=== PATIENT | male | born 1985 | race African-American/Black ===

== ENCOUNTER 2016-12-31 18:08 | Emergency (ER) | payer OTHER ==
[2016-12-31 18:15] VITALS: BP 159/89; PULSE 87; TEMP 97.6; BMI 22.9
[2016-12-31] MEDS ORDERED: diphenhydrAMINE HCL 25 MG CAPSULE (FP) PO ONE ×2 (19:10→19:12)
--- NOTE | 2016-12-31 19:10 | PDOC ---
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 HISTORY OF PRESENT ILLNESS: The patient states he tried a new food about 2 hours ago and the [employer] worker was unsure if there were any nuts or coconut milk in the food. He states after a few bites he started feeling tingling in his throat. He denies f/c, n/v/d, CP, SOB, swelling to lips or tongue. He did not take any OTC medications prior to coming to the ER. Vital signs on arrival are within normal limits. REVIEW OF SYSTEMS: GENERAL/CONSTITUTIONAL: No fever/chills. No weakness. No weight change. HEAD, EYES, EARS, NOSE AND THROAT: No change in vision. No ear pain or discharge. +tingling throat. CARDIOVASCULAR: No chest pain or shortness of breath. RESPIRATORY: No cough, wheezing, or hemoptysis MUSCULOSKELETAL: No joint or muscle swelling or pain. No neck or back pain. SKIN: No rash or easy bruising. NEUROLOGIC: No headache, vertigo, loss of consciousness, or loss of sensation. PHYSICAL EXAM: GENERAL: The patient is awake, alert, and fully oriented, in no acute distress. He is well appearing, ambulatory, in NAD or obvious discomfort. HEAD: Normal with no signs of trauma. ENT: Pupils equal, round and reactive to light, extraocular movements intact, sclera anicteric, conjunctiva clear. No lip or tongue swelling. LUNGS: Clear to auscultation bilaterally. Normal excursion. No respiratory distress or use of accessory muscles. CV: RRR, S1/S2, no MRG. Cap refill < 2 sec. ABDOMEN: Soft, non-distended, non-tender even to deep palpation, no hepatomegaly or splenomegaly, no masses. EXTREMITIES: Normal range of motion, no edema. NEUROLOGICAL: Normal speech, normal gait. CN II-XII grossly intact. PSYCH: Normal mood, normal affect. SKIN: Warm, dry, normal turgor, no rashes or lesions noted. Past History - Past Medical History Allergies/Adverse Reactions: Allergies Allergy/AdvReac Type Severity Reaction Status Date / Time No Known Drug Allergies Allergy Verified 12/31/16 19:13 MOST NUTS Allergy Uncoded 12/31/16 18:11 Home Medications: Ambulatory Orders NK [No Known Home Medication] 12/31/16 Other medical history: PT DENIES MEDICAL HX - Psycho/Social/Smoking Cessation Hx Suicidal Ideation: No Smoking History: Current some day smoker Information on smoking cessation initiated: No Hx Alcohol Use: No Drug/Substance Use Hx: Yes Substance Use Type: Marijuana *Physical Exam - Vital Signs Last Vital Signs Temp Pulse Resp BP Pulse Ox 97.6 F 87 18 159/89 100 12/31/16 18:11 12/31/16 18:11 12/31/16 18:11 12/31/16 18:11 12/31/16 18:11 Medical Decision Making - Medical Decision Making A/P: 31 y/o afebrile male with itchy throat for the past 2 hours after eating new food. Physical exam is unremarkable. Plan is as follows: 1. PO benadryl 2. PO prednisone 3. Reassess The patient states he feels better. Will discharge to home. Suggested he take Benadryl if needed if symptoms recur. Instructed him to return to the ER with any worsening or concerning symptoms. The patient verbalizes understanding of all instructions, has no further questions and is awaiting discharge. *DC/Admit/Observation/Transfer Diagnosis at time of Disposition: Allergic reaction Qualifiers: Encounter type: initial encounter Qualified Code(s): T78.40XA - Allergy, unspecified, initial encounter - Discharge Dispostion Disposition: HOME Condition at time of disposition: Improved - Referrals Referrals: Saroj Dent MD [Primary Care Provider] - - Patient Instructions Printed Discharge Instructions: DI for General Allergic Reactions Additional Instructions: Discharge Instructions: -Avoid foods that contain ingredients you are allergic to -Take over the counter Benadryl if needed for itchy throat/allergic reaction symptoms -Return to the ER with any worsening or concerning symptoms
[2016-12-31] MEDS ORDERED: predniSONE 20 MG TABLET (UD) PO ONE (19:15)
[2016-12-31] MEDS ORDERED: predniSONE 20 MG TABLET (UD) ONE (19:21)
== END 2016-12-31 21:02 | disposition home or self-care (01) ==
LOC: JER 18:08
DX: T78.1XXA Other adverse food reactions, not elsewhere classified, initial encounter (principal); J39.2 Other diseases of pharynx
CPT/HCPCS: 99282-25

== ENCOUNTER 2019-03-17 13:24 | Inpatient (IN) | payer SELFPAY ==
[2019-03-17 13:36] VITALS: BMI 25.8
[2019-03-17] MEDS ORDERED: SODIUM CHLORIDE 1,000 ML IV STA ×2 (15:43→18:46)
[2019-03-17] MEDS ORDERED: ACETAMINOPHEN 1000 MG/100 ML VIAL (NON FORMULARY) IVPB ONE ×2 (15:43→23:42)
[2019-03-17] MEDS ORDERED: FAMOTIDINE 20 MG/50 ML IVPB 20 MG/50 ML MG IVPB ONE ×2 (15:43→15:58)
--- NOTE | 2019-03-17 15:43 | PDOC ---
History of Present Illness - General Chief Complaint: Pain, Acute Stated Complaint: LOWER ABD PAIN Time Seen by Provider: 03/17/19 14:16 History Source: Patient Exam Limitations: No Limitations Past History - Travel Traveled outside of the country in the last 30 days: No Close contact w/someone who was outside of country & ill: No - Past Medical History Allergies/Adverse Reactions: Allergies Allergy/AdvReac Type Severity Reaction Status Date / Time No Known Drug Allergies Allergy Verified 03/17/19 16:46 MOST NUTS Allergy Uncoded 03/17/19 16:46 Home Medications: Ambulatory Orders NK [No Known Home Medication] 12/31/16 COPD: No GI Disorders: No Liver Disease: No - Surgical History Gastric Stapling: No - Immunization History Immunization Up to Date: Yes - Suicide/Smoking/Psychosocial Hx Smoking History: Never smoked Have you smoked in the past 12 months: No Information on smoking cessation initiated: No Hx Alcohol Use: Yes Drug/Substance Use Hx: No Substance Use Type: Marijuana Review of Systems - Review of Systems Able to Perform ROS?: Yes Comments:: 03/17/19 18:24 CONSTITUTIONAL: Absent: fever, chills, diaphoresis, generalized weakness, malaise, loss of appetite HEENT: Absent: rhinorrhea, nasal congestion, throat pain, throat swelling, difficulty swallowing, mouth swelling, ear pain, eye pain, visual Changes CARDIOVASCULAR: Absent: chest pain, loss of consciousness, palpitations, irregular heart rate, peripheral edema RESPIRATORY: Absent: cough, shortness of breath, dyspnea with exertion, orthopnea, wheezing, stridor, hemoptysis GASTROINTESTINAL: Present: abdominal pain, nausea Absent: abdominal distension, vomiting, diarrhea , constipation, melena, hematochezia GENITOURINARY: Absent: dysuria, frequency, urgency, hesitancy, hematuria, flank pain, genital pain MUSCULOSKELETAL: Absent: myalgia, arthralgia, joint swelling SKIN: Absent: rash, itching, pallor HEMATOLOGIC/IMMUNOLOGIC: Absent: easy bleeding, easy bruising, lymphadenopathy, frequent infections ENDOCRINE: Absent: unexplained weight gain, unexplained weight loss, heat intolerance, cold intolerance NEUROLOGIC: Absent: headache, focal weakness or paresthesias, dizziness, unsteady gait, seizure, mental status changes, bladder or bowel incontinence PSYCHIATRIC: Absent: anxiety, depression, suicidal or homicidal ideation, hallucinations. Is the patient limited Azeri proficient: No *Physical Exam - Vital Signs Last Vital Signs Temp Pulse Resp BP Pulse Ox 97.8 F 135 H 18 130/93 96 03/17/19 13:32 03/17/19 13:32 03/17/19 13:32 03/17/19 13:32 03/17/19 13:32 - Physical Exam Comments: 03/17/19 18:26 GENERAL: Well developed, well nourished. Awake and alert. No acute distress. HEENT: Normocephalic, atraumatic. PERRLA, EOMI. No conjunctival pallor. Sclera are non- icteric. Moist mucous membranes. NECK: Supple. Full ROM. No JVD. Carotid pulses 2+ and symmetric, without bruits. No thyromegaly. No lymphadenopathy. CARDIOVASCULAR: Regular rate and rhythm. No murmurs, rubs, or gallops. Distal pulses are 2+ and symmetric. PULMONARY: No evidence of respiratory distress. Lungs clear to auscultation bilaterally. No wheezing, rales or rhonchi. ABDOMINAL: TTP of the RUQ and epigastric area. Mildly distended. Soft. No rebound or guarding. No organomegaly. Normoactive bowel sounds. MUSCULOSKELETAL Normal range of motion at all joints. No bony deformities or tenderness. No CVA tenderness. EXTREMITIES: No cyanosis. No clubbing. No edema. No calf tenderness. SKIN: Warm and dry. Normal capillary refill. No rashes. No jaundice. NEUROLOGICAL: Alert, awake, appropriate. Cranial nerves 2-12 intact. No deficits to light touch and temperature in face, upper extremities and lower extremities. No motor deficits in the in face, upper extremities and lower extremities. Normoreflexic in the upper and lower extremities. Normal speech. Toes are down- going bilaterally. Gait is normal without ataxia. PSYCHIATRIC: Cooperative. Good eye contact. Appropriate mood and affect. ED Treatment Course - LABORATORY CBC & Chemistry Diagram: 03/18/19 09:25 03/18/19 09:25 Medical Decision Making - Medical Decision Making 03/17/19 19:03 The patient is a 34-year-old male with no medical history who presents to the ER today for abdominal pain since this morning. Patient states that is mostly in his upper abdomen. He states it is worse in the middle and off towards the right. He states that he last ate dinner last night and went to bed. He states he woke up with the pain. Nothing he does makes the pain better or worse. Admits to nausea but no vomiting. Denies fevers, chills, chest pain, shortness breath, difficulty breathing, vomiting, diarrhea, constipation, frequency and urgency. Is S/P: Epigastric pain On exam patient very tender to the right upper quadrant in the epigastric region. Abdominal labs ordered, IV placed Lab work shows a leukocytosis of 18, lipase of 10,000 Suspected pancreatitis; possibly gallstone related. Ascending cholangitis? Patient sent for both ultrasound and CAT scan at this time Patient is pending scans and reads at this time Sign out given to GABY Johnson. Anticipate admission Patient does not have primary care doctor. *DC/Admit/Observation/Transfer Diagnosis at time of Disposition: Abdominal pain Qualifiers: Abdominal location: upper abdomen, unspecified Qualified Code(s): R10.10 - Upper abdominal pain, unspecified Acute pancreatitis Qualifiers: Pancreatitis type: alcohol induced Acute pancreatitis complication: uninfected necrosis Qualified Code(s): K85.21 - Alcohol induced acute pancreatitis with uninfected necrosis - Discharge Dispostion Condition at time of disposition: Stable - Referrals - Patient Instructions - Post Discharge Activity
[2019-03-17] MEDS ORDERED: ACETAMINOPHEN INJECTION 100 ML IVPB ONE (15:58)
[2019-03-17 16:20] LABS: BASO % 0.1 % (0-2.0); HEMATOCRIT 49.6 % (35.4-49); HEMOGLOBIN 16.5 GM/dL (11.7-16.9); LYMPH % 4.3 % (8-40); MCH 31.1 pg (25.7-33.7); MCHC 33.3 g/dl (32.0-35.9); MEAN CELL VOLUME 93.5 fl (80-96); MEAN PLT VOLUME 7.9 fl (7.5-11.1); MONO % 8.3 % (3.8-10.2); NEUT % 87.3 % (42.8-82.8); PLATELET COUNT 205 K/MM3 (134-434); RDW 13.9 % (11.9-15.9); WHITE BLOOD COUNT 18.4 K/mm3 (4.0-10.0)
[2019-03-17 16:40] LABS: INR 1.04 (0.83-1.09); PROTHROMBIN TIME (PATIENT) 12.3 SEC (9.7-13.0)
[2019-03-17 16:51] LABS: ALBUMIN 4.8 g/dl (3.4-5.0); ALK PHOS 52 U/L (45-117); ANION GAP 17 MMOL/L (8-16); BILIRUBIN,TOTAL 0.4 mg/dL (0.2-1); BLOOD UREA NITROGEN 18 mg/dL (7-18); CALCIUM 9.2 mg/dL (8.5-10.1); CHLORIDE 103 mmol/L (98-107); CO2 18 mmol/L (21-32); GLUCOSE,RANDOM 133 mg/dL (74-106); LIPASE 10515 U/L (73-393); POTASSIUM 4.1 mmol/L (3.5-5.1); SGOT/AST 35 U/L (15-37); SGPT/ALT 74 U/L (13-61); SODIUM 139 mmol/L (136-145); TOT PROT 8.8 g/dl (6.4-8.2)
[2019-03-17] MEDS ORDERED: morphine CARPU-JECT 4 MG/1 ML DISP.SYRIN IVPUSH ONE (17:28)
[2019-03-17] MEDS ORDERED: morphine SULFATE 4 MG/ML VIAL ONE (17:28)
[2019-03-17] MEDS ORDERED: HYDROmorphone HCL CARPU-JECT 2 MG/1 ML DISP.SYRIN IVPUSH ONE ×2 (19:53→23:42)
[2019-03-17] MEDS ORDERED: HYDROmorphone HCl 2 MG/ML VIAL ONE ×2 (20:41→23:47)
--- NOTE | 2019-03-17 22:33 | PDOC ---
*Physical Exam - Vital Signs Last Vital Signs Temp Pulse Resp BP Pulse Ox 97.8 F 135 H 18 130/93 96 03/17/19 13:32 03/17/19 13:32 03/17/19 13:32 03/17/19 13:32 03/17/19 13:32 - Physical Exam General Appearance: Yes: Appropriately Dressed Respiratory/Chest: positive: Lungs Clear, Normal Breath Sounds Cardiovascular: positive: Tachycardia Gastrointestinal/Abdominal: positive: Tender, Distended Musculoskeletal: positive: Normal Inspection Integumentary: positive: Dry, Warm Neurologic: positive: Fully Oriented, Alert ED Treatment Course - LABORATORY CBC & Chemistry Diagram: 03/19/19 05:30 03/19/19 05:30 - ADDITIONAL ORDERS Additional order review: Laboratory Results 03/17/19 03/17/19 16:12 15:45 PT with INR 12.30 INR 1.04 Sodium 139 Potassium 4.1 Chloride 103 Carbon Dioxide 18 L Anion Gap 17 H BUN 18 Creatinine 1.0 Creat Clearance w eGFR 84.55 Random Glucose 133 H Calcium 9.2 Total Bilirubin 0.4 AST 35 ALT 74 H Alkaline Phosphatase 52 Total Protein 8.8 H Albumin 4.8 Lipase 56637 H 03/17/19 16:12 RBC 5.30 MCV 93.5 MCHC 33.3 RDW 13.9 MPV 7.9 Neutrophils % 87.3 H Lymphocytes % 4.3 L Monocytes % 8.3 Eosinophils % 0.0 Basophils % 0.1 - Medications Given in the ED: ED Medications Discontinued Medications Generic Name Dose Route Start Last Admin Trade Name Freq PRN Reason Stop Dose Admin Acetaminophen 1,000 mg 03/17/19 15:43 03/17/19 16:06 Ofirmev Injection - IVPB 03/17/19 15:44 1,000 mg ONCE ONE Administration Hydromorphone HCl 1 mg 03/17/19 19:53 03/17/19 20:47 Dilaudid Injection - IVPUSH 03/17/19 19:54 1 mg ONCE ONE Administration Famotidine/Sodium Chloride 20 mg in 50 mls @ 100 mls/hr 03/17/19 15:43 16:16 Pepcid 20 Mg Premixed Ivpb - IVPB 03/17/19 16:12 100 mls/hr ONCE ONE Administration Sodium Chloride 1,000 mls @ 1,000 mls/hr 03/17/19 15:43 03/17/19 16:16 Normal Saline - IV 03/17/19 16:42 1,000 mls/hr ASDIR STA Administration Sodium Chloride 1,000 mls @ 1,000 mls/hr 03/17/19 18:46 03/17/19 20:47 Normal Saline - IV 03/17/19 19:45 1,000 mls/hr ASDIR STA Administration Morphine Sulfate 4 mg 03/17/19 17:28 03/17/19 17:30 Morphine Injection - IVPUSH 03/17/19 17:29 4 mg ONCE ONE Administration Medical Decision Making - Medical Decision Making 03/17/19 23:37 A: pancreatitis ; CTAP consistent with acute pancreatitis IVF antibiotics 03/17/19 23:52 patient signed out to Dr. Fleming/ Dr. doran *DC/Admit/Observation/Transfer Diagnosis at time of Disposition: Abdominal pain Qualifiers: Abdominal location: upper abdomen, unspecified Qualified Code(s): R10.10 - Upper abdominal pain, unspecified Acute pancreatitis Qualifiers: Pancreatitis type: alcohol induced Acute pancreatitis complication: uninfected necrosis Qualified Code(s): K85.21 - Alcohol induced acute pancreatitis with uninfected necrosis - Discharge Dispostion Condition at time of disposition: Stable Decision to Admit order: Yes - Referrals - Patient Instructions - Post Discharge Activity
[2019-03-17] MEDS ORDERED: SODIUM CHLORIDE 1,000 ML IV SCH (22:45)
[2019-03-17] MEDS ORDERED: LACTATED RINGERS SOLUTION 1,000 ML IV SCH (23:45)
--- NOTE | 2019-03-18 00:20 | PN ---
Teaching Attending Note Name of Resident: Paulina Darby ATTENDING PHYSICIAN STATEMENT I saw and evaluated the patient. I reviewed the resident's note and discussed the case with the resident. I agree with the resident's findings and plan as documented. SUBJECTIVE: Seen and examined; please refer to resident note for further historical documentation. Briefly, this is a 34 y/o male with no PMH aside from GERD and Alcoholism who presents to the ER with abdominal pain; he drinks daily 2-3 drinks but did binge on the holiday stating he forgets how much he drank but knows that it was alot. He has abdominal pain in his upper abdomen radiating throughout; has had abdominal pain in the past but not like this. No history of abdominal surgeries, prior diagnosed pancreatitis, hospital admissions for any GI issues, or EGD/colonoscopy. Doesn't have a surgeon or GI specialist. He suspects he may have alcoholism. He is noted to be tachycardic with low- grade fever and to appear uncomfortable in the ER. CT done in the ER shows acute pancreatitis with diminished contrast enhancement which could be 2/2 necrosis vs. prominent focal edema. US was also done which shows no evidence of definitive biliary tract dilation and no evidence of cholelithiasis. He was hydrated, given pain control and broad spectrum abx, and medicine was called for admission. He will be brought to the floor on the medicine service with GI and surgical consultations for potential pancreatitis with necrosis. 10 sys ROS done and negative aside from HPI PMH, PSH, FH, SH reviewed Home Medications Medication Instructions Recorded NK [No Known Home Medication] 12/31/16 OBJECTIVE: VS, labs, imaging reviewed Mild distress, AAOx3, resting comfortably in bed NC AT EOMI PERRLA Tender upper abdomen without rebound or guarding, mild distention, +BS Tachycardic with regular rhythm, s1/2 Lungs CTAB, w/ sym exp CN2-12 wnl, no fnd Normal mood, appropriate behavior ASSESSMENT AND PLAN: Patient presents with acute pancreatitis with possible necrosis 1) Acute pancreatitis with possible necrosis -NPO, IVF with LR@150cc/hr, pain control with dilaudid 1mg IV Q2H PRN -Trend CMP, trend clinical examination -Given potential necrosis vs. 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 I suspect given EtOH abuse may be moreso alcoholic gastritis. 4) Uncontrolled HTN -SBP 170s but in pain; will control pain from #1 and then reassess. 5) Suspected AG+ Metabolic Acidosis -Checking blood gas; low CO2 with +AG; followup lactate Full Code
[2019-03-18] MEDS ORDERED: LACTATED RINGERS SOLUTION 1,000 ML IV SCH ×2 (00:21→08:37)
[2019-03-18] MEDS ORDERED: MEROPENEM 1 GM in DEXTROSE 5%-WATER 100 ML IVPB SCH ×2 (00:27→02:00)
[2019-03-18] MEDS ORDERED: LORazepam 2 MG/ML SDV VIAL IVPUSH PRN (00:28)
--- NOTE | 2019-03-18 00:35 | HP ---
CHIEF COMPLAINT: abdominal pain x 1 day PCP: none HISTORY OF PRESENT ILLNESS: 34 y/o M with hx GERD, alcohol dependence, who presents to the ED c/o 1 day hx of severe abdominal pain. As per pt, it began this AM in his RUQ and RLQ. Was a sharp pain that was constant, but was unlike any other pain he has ever had before. Denies radiation. During this time, he does not endorse nausea, vomiting , or diarrhea. States that he occasionally takes an acid suppressant for his GERD, but otherwise does not take other medications. Has never had an ERCP, EGD , colonoscopy. Denies recent illnesses. Last drink was on Saturday, states that he was "drinking all day long." Otherwise, endorses at least two glasses of wine per day, however does believe that he is alcohol dependent. Denies STROUD, fever, chills, SOB, chest pain or pressure, or changes in urinary or bowel function. While in the ED, he was febrile to 100.2F with elevated BP ~170/110. Lipase found to be 10,515, and CTAP showed acute pancreatitis, with diminished contrast enhancement which may be on the basis of necrosis vs. prominent focal edema. Also w/ several small calcifications. Small amt of fluid in the paracolic spaces b/l and perihepatic and perisplenic free fluid visualized. Trace L pleural effusion seen. ER course was notable for: (1) 100.2 t, HR 135, 172/110 (2) leukocytosis 18.4 (3) IV tylenol, pepcid, levaquin, flagyl, dilaudid, morphine, NS x2L Recent Travel: denies PAST MEDICAL HISTORY: as above PAST SURGICAL HISTORY: denies Social History: Smokin/2 ppd x past few yrs Alcohol: as above; heavy drinking. see HPI Drugs: denies Family History: mother - "has an illness" does not know type Allergies No Known Drug Allergies Allergy (Verified 03/17/19 16:46) MOST NUTS Allergy (Uncoded 03/17/19 16:46) HOME MEDICATIONS: Home Medications Medication Instructions Recorded NK [No Known Home Medication] 12/31/16 confirmed with patient. not on any meds. occasionally on an "acid suppressant" for his stomach. need to call [facility] to verify REVIEW OF SYSTEMS CONSTITUTIONAL: Absent: fever, chills, diaphoresis, generalized weakness, malaise, loss of appetite, weight change HEENT: Absent: rhinorrhea, nasal congestion, throat pain, throat swelling, difficulty swallowing, mouth swelling, ear pain, eye pain, visual changes CARDIOVASCULAR: Absent: chest pain, syncope, palpitations, irregular heart rate, lightheadedness , peripheral edema RESPIRATORY: Absent: cough, shortness of breath, dyspnea with exertion, orthopnea, wheezing, stridor, hemoptysis GASTROINTESTINAL: +abdominal pain Absent: abdominal pain, abdominal distension, nausea, vomiting, diarrhea, constipation, melena, hematochezia GENITOURINARY: Absent: dysuria, frequency, urgency, hesitancy, hematuria, flank pain, genital pain MUSCULOSKELETAL: Absent: myalgia, arthralgia, joint swelling, back pain, neck pain SKIN: Absent: rash, itching, pallor HEMATOLOGIC/IMMUNOLOGIC: Absent: easy bleeding, easy bruising, lymphadenopathy, frequent infections ENDOCRINE: Absent: unexplained weight gain, unexplained weight loss, heat intolerance, cold intolerance NEUROLOGIC: Absent: headache, focal weakness or paresthesias, dizziness, unsteady gait, seizure, mental status changes, bladder or bowel incontinence PSYCHIATRIC: Absent: anxiety, depression, suicidal or homicidal ideation, hallucinations. PHYSICAL EXAMINATION Vital Signs - 24 hr 03/17/19 03/17/19 13:32 23:45 Temperature 97.8 F 100.2 F H Pulse Rate 135 H Pulse Rate [ 119 H Apical] Respiratory 18 20 Rate Blood Pressure 130/93 Blood Pressure 175/118 H [Left Arm] O2 Sat by Pulse 96 98 Oximetry (%) GENERAL: Lying in bed. Awake, alert, and fully oriented, in no acute distress. HEAD: Normal with no signs of trauma. EYES: Pupils equal, round and reactive to light, extraocular movements intact, sclera anicteric, conjunctiva clear. EARS, NOSE, THROAT: Ears normal, nares patent, oropharynx clear without exudates. Moist mucous membranes. NECK: Normal range of motion, supple LUNGS: Breath sounds equal, clear to auscultation bilaterally. No wheezes, and no crackles. No accessory muscle use. HEART: +tachycardic rate and rhythm, normal S1 and S2 without murmur, rub or gallop. ABDOMEN: Soft, +diffuseyl tender. aracelis in epigastrium. with mild distension LOWER EXTREMITIES: 2+ pt pulses, warm, well-perfused. No calf tenderness. No peripheral edema. NEUROLOGICAL: Cranial nerves II-XII intact. 5/5 motor strength UE, LE. PSYCHIATRIC: Cooperative. Good eye contact. Laboratory Results - last 24 hr 03/17/19 03/17/19 03/17/19 15:45 16:12 16:12 WBC 18.4 H RBC 5.30 Hgb 16.5 Hct 49.6 H MCV 93.5 MCH 31.1 MCHC 33.3 RDW 13.9 Plt Count 205 MPV 7.9 Absolute Neuts (auto) 16.0 H Neutrophils % 87.3 H Lymphocytes % 4.3 L Monocytes % 8.3 Eosinophils % 0.0 Basophils % 0.1 Nucleated RBC % 0 PT with INR 12.30 INR 1.04 Sodium 139 Potassium 4.1 Chloride 103 Carbon Dioxide 18 L Anion Gap 17 H BUN 18 Creatinine 1.0 Creat Clearance w eGFR 84.55 Random Glucose 133 H Calcium 9.2 Total Bilirubin 0.4 AST 35 ALT 74 H Alkaline Phosphatase 52 Total Protein 8.8 H Albumin 4.8 Lipase 60454 H CTAP showed acute pancreatitis, with diminished contrast enhancement which may be on the basis of necrosis vs. prominent focal edema. Also w/ several small calcifications. Small amt of fluid in the paracolic spaces b/l and perihepatic and perisplenic free fluid visualized. Trace L pleural effusion seen. EKG: requested, pending Abd sono: no evidence of acute mita. CBD 0.4 cm. no biliary calculus seen. ASSESSMENT/PLAN: 34 y/o M with hx GERD, alcohol dependence, who presents to the ED c/o 1 day hx of severe abdominal pain. #Sepsis 2/2 acute pancreatitis w/ possible necrosis -f/u lactic, VBG. has AG. -f/u triglyceride level. -will tx with meropenem 1g IVPB q8h as w/better necrotic penetration -f/u ucx, blood cx -pain control w/dilaudid PRN -NPO -vigorous IVF. LR 150 cc/hr -ID consult: Dr. Hightower -sx consult: Dr. Roe. will keep NPO, T+S, coags in case of intervention #alcohol abuse -mild to moderate withdrawal -follow CIWA -will give IV thiamine, folate to keep NPO -ativan protocol PRN for withdrawal -tele monitoring #hx GERD -c/w protonix #HTN- uncontrolled -likely 2/2 pain #F/E/N IV LR 150 cc/hr continue to follow lytes NPO #PPX SCD's in case of intervention #Dispo admit to tele requires for alc withdrawal as well as close monitoring Visit type - Emergency Visit Emergency Visit: Yes ED Registration Date: 03/17/19 Care time: The patient presented to the Emergency Department on the above date and was hospitalized for further evaluation of their emergent condition. - New Patient This patient is new to me today: Yes Date on this admission: 03/18/19 - Critical Care Critical Care patient: No
[2019-03-18] MEDS ORDERED: ACETAMINOPHEN INJECTION 100 ML IVPB ONE (00:56)
[2019-03-18] MEDS ORDERED: PANTOPRAZOLE SODIUM 40 MG VIAL ONE (01:38)
[2019-03-18] MEDS: PANTOPRAZOLE SODIUM 40 MG VIAL IVPUSH SCH ×3 (01:44→22:10)
[2019-03-18] MEDS ORDERED: LACTATED RINGERS SOLUTION 1000 ML INFUS.BAG IV ONE (04:49)
[2019-03-18] MEDS ORDERED: HYDROmorphone HCl 2 MG/ML VIAL ONE (05:14)
[2019-03-18] MEDS: HYDROmorphone HCl 2 MG/ML VIAL IVPB PRN ×4 (05:16→22:54)
[2019-03-18] MEDS ORDERED: HEPARIN NA (PORCINE) 5,000 UNITS/ML 1ML VIAL SQ SCH (06:00)
[2019-03-18 08:47] LABS: EPI CELLS 2.8 /HPF (0-5/HPF); PH,URINE 5.5 (5.0-8.0); URINE APPEARANCE CLEAR; URINE BACTERIA 0 /hpf (NEGATIVE); URINE BILIRUBIN NEGATIVE (NEGATIVE); URINE CASTS 20 /lpf (0-8); URINE COLOR YELLOW; URINE GLUCOSE (UA) NEGATIVE (NEGATIVE); URINE KETONE NEGATIVE (NEGATIVE); URINE LEUK ESTERASE NEGATIVE (NEGATIVE); URINE NITRITE NEGATIVE (NEGATIVE); URINE PROTEIN 2+ (NEGATIVE); URINE RBC 2 /hpf (0-4); URINE UROBILINOGEN 0.2 mg/dL (0.2-1.0); URINE WBC 1 /hpf (0-5)
[2019-03-18 08:48] LABS: VENOUS PC02 33.7 mmHg (41-51); VENOUS PH 7.42 (7.31-7.41); VENOUS PO2 78.4 mmHg (30-40)
[2019-03-18 09:40] LABS: BASO % 0.2 % (0-2.0); HEMATOCRIT 44.4 % (35.4-49); HEMOGLOBIN 15.1 GM/dL (11.7-16.9); LYMPH % 5.4 % (8-40); MCH 31.8 pg (25.7-33.7); MCHC 34.1 g/dl (32.0-35.9); MEAN CELL VOLUME 93.5 fl (80-96); MONO % 10.7 % (3.8-10.2); NEUT % 83.7 % (42.8-82.8); PLATELET COUNT 148 K/MM3 (134-434); RBC 4.75 M/mm3 (4.00-5.60); RDW 13.8 % (11.9-15.9); WHITE BLOOD COUNT 11.9 K/mm3 (4.0-10.0)
[2019-03-18] MEDS ORDERED: THIAMINE HCL 200 MG/2 ML VIAL IVPB SCH (10:00)
[2019-03-18] MEDS ORDERED: FOLIC ACID 5 MG/1 ML SQ SCH (10:00)
[2019-03-18 10:17] LABS: ALBUMIN 3.3 g/dl (3.4-5.0); ALK PHOS 36 U/L (45-117); ANION GAP 6 MMOL/L (8-16); BILIRUBIN,TOTAL 0.7 mg/dL (0.2-1); BLOOD UREA NITROGEN 14 mg/dL (7-18); CALCIUM 7.2 mg/dL (8.5-10.1); CHLORIDE 103 mmol/L (98-107); CO2 30 mmol/L (21-32); CREATININE 0.9 mg/dL (0.55-1.3); GLUCOSE,RANDOM 122 mg/dL (74-106); MAGNESIUM 1.5 mg/dL (1.8-2.4); PHOSPHOROUS 1.5 mg/dL (2.5-4.9); POTASSIUM 4.5 mmol/L (3.5-5.1); SGOT/AST 65 U/L (15-37); SGPT/ALT 41 U/L (13-61); SODIUM 139 mmol/L (136-145); TOT PROT 6.2 g/dl (6.4-8.2); TRIGLYCERIDES 101 mg/dL (0-150)
--- NOTE | 2019-03-18 10:26 | EKG ---
Test Reason : Blood Pressure : / mmHG Vent. Rate : 135 BPM Atrial Rate : 135 BPM P-R Int : 142 ms QRS Dur : 074 ms QT Int : 294 ms P-R-T Axes : 058 060 049 degrees QTc Int : 441 ms SINUS TACHYCARDIA POSSIBLE LEFT ATRIAL ENLARGEMENT BORDERLINE ECG NO PREVIOUS ECGS AVAILABLE Confirmed by EDITH HUITRON, CIARAN ([id number]) on 03/18/2019 10:26:28 AM Referred By: Confirmed By:CIARAN SHARMA MD
--- NOTE | 2019-03-18 10:40 | CONSULT ---
- Consultation REQUESTING PROVIDER: Vishnu Roe - General Surgery CONSULT REQUEST: We have been asked to surgically evaluate this patient for epigastric pain/Pancreatitis PCP: Dr. Mercado Hospitalist: Edouard Durham MD HPI: Called to kady 34 yo male who presents to [facility] ED with c/o abd pain ( epigastric) x1 day. Began early this morning. States he's experienced this before in his past two other times but never sought medical attention. Today, pain so severe he came to ED for further evaluation. Patient is aware that he has GERD and occassionaly takes an OTC acid suppressant. Per patient, doesn't like going to see PCP/GI therefore has never followed-up. States he's never had an EGD or colonoscopy. Patient admits to drinking heavily this past Saturday. Last bowel movement was on Saturday and said it was normal (not dark appearing, soft). Denies any n/v/d, hematemesis, CP, palpitations, SOB, SUAREZ, melena or hematochazia. Denies loss of appetite or weight change, Denies peripheral edema. Denies easy bleeding, easy bruising, lymphadenopathy. While in the ED, WBC 18.4, febrile to 100.2F with elevated BP ~170/110. Lipase found to be 10,515, and CT:acute pancreatitis, with diminished contrast enhancement which may be on the basis of necrosis vs. prominent focal edema. Also w/ several small calcifications. Small amt of fluid in the paracolic spaces b/l and perihepatic and perisplenic free fluid visualized. Trace L pleural effusion seen. U/S:no evidence of cholecystitis or lithiasis. Social History: Smokin/2 ppd x past few yrs Alcohol: states about 4 drinks per day (wine, beer, mixed drinks) Drugs: used to smoke marijuana (states he quit a year ago) PMHx: GERD, EtOH PSHx: Denies. Home Meds: None. Allergies: NKDA. Most nuts ROS CONSTITUTIONAL: Absent: fever, chills, diaphoresis, generalized weakness, malaise CARDIOVASCULAR: Absent: syncope, irregular heart rate, lightheadedness RESPIRATORY: Absent: cough, wheezing, stridor GASTROINTESTINAL:Absent: SEE HPI GENITOURINARY: Absent: dysuria, frequency, urgency, hesitancy, flank pain, genital pain MUSCULOSKELETAL: Absent: myalgia, arthralgia, joint swelling, back pain, neck pain SKIN: Absent: rash, itching, pallor HEMATOLOGIC/IMMUNOLOGIC: SEE HPI NEUROLOGIC: Absent: headache, focal weakness, paresthesias, dizziness, unsteady gait, seizure, mental status changes PSYCHIATRIC: Absent: anxiety, depression, suicidal or homicidal ideation, hallucinations. PE: GENERAL: Awake, a&o, nad HEAD: NC. AT. EYES: PERRL, sclera anicteric, conjunctiva clear. NECK: Normal ROM, supple without lymphadenopathy, JVD, or masses. LUNGS: CTA bilat HEART: RRR ABDOMEN: Softly distended, diffuse ttp in all quadrants (upper > lower), MUSCULOSKELETAL: No CVAT bilat UE: 2+ pulses, warm, well-perfused. No cyanosis. Cap refill <2 seconds. No peripheral edema. LE: 2+ pulses, warm, well-perfused. No calf tenderness. No peripheral edema. NEUROLOGICAL: Normal speech, gait not observed. PSYCH: Cooperative. Good eye contact. Appropriate mood and affect. SKIN: Warm, dry, normal turgor, no rashes or lesions noted. Last Vital Signs Temp Pulse Resp BP Pulse Ox 99.1 F 103 H 16 158/98 100 03/18/19 06:42 03/18/19 08:20 03/18/19 08:20 03/18/19 08:20 03/18/19 08:20 CBC, BMP 03/18/19 09:25 03/18/19 09:25 Blood Type Blood Type B POSITIVE 03/18/19 07:08 Hepatic Panel Total Bilirubin 0.7 mg/dL (0.2-1) 03/18/19 09:25 AST 65 U/L (15-37) H 03/18/19 09:25 ALT 41 U/L (13-61) 03/18/19 09:25 Alkaline Phosphatase 36 U/L (45-117) L 03/18/19 09:25 Albumin 3.3 g/dl (3.4-5.0) L 03/18/19 09:25 INR, PTT INR 1.04 (0.83-1.09) 03/17/19 16:12 Urine Results Urine Color Yellow 03/18/19 05:00 Urine Appearance Clear 03/18/19 05:00 Urine pH 5.5 (5.0-8.0) 03/18/19 05:00 Ur Specific [place] 1.064 (1.010-1.035) H 03/18/19 05:00 Urine Protein 2+ (NEGATIVE) H 03/18/19 05:00 Urine Glucose (UA) Negative (NEGATIVE) 03/18/19 05:00 Urine Ketones Negative (NEGATIVE) 03/18/19 05:00 Urine Blood 3+ (NEGATIVE) H 03/18/19 05:00 Urine Nitrite Negative (NEGATIVE) 03/18/19 05:00 Urine Bilirubin Negative (NEGATIVE) 03/18/19 05:00 Ur Leukocyte Esterase Negative (NEGATIVE) 03/18/19 05:00 LA & Lipase 03/17/19 03/18/19 03/18/19 15:45 03:50 07:08 Lactic Acid 3.6 H* 3.4 H* Lipase 75736 H Problem List - Problems (1) Acute pancreatitis Assessment/Plan: 34 yo male admitted to [facility] with abd pain --> CT identified acute necrotizing pancreatitis. Fever; Leukocytosis (resolving); Lactic Acidosis NPO IVF Resuscitation Trend Lipase Pain management CBC/BMP ID started patient on Meropenem Tylenol for fever > 100.4F GI Consult Serial ABD exams Cont Medical mangement at this time General Surgery to cont following Above plan discussed with Dr. Roe and agrees Code(s): K85.90 - ACUTE PANCREATITIS WITHOUT NECROSIS OR INFECTION, UNSP Qualifiers: Pancreatitis type: alcohol induced Acute pancreatitis complication: uninfected necrosis Qualified Code(s): K85.21 - Alcohol induced acute pancreatitis with uninfected necrosis (2) Abdominal pain Code(s): R10.9 - UNSPECIFIED ABDOMINAL PAIN Qualifiers: Abdominal location: upper abdomen, unspecified Qualified Code(s): R10.10 - Upper abdominal pain, unspecified Visit type - Case Type Case Type: ED Admission - Emergency Emergency Visit: Yes ED Registration Date: 03/17/19 Care time: The patient presented to the Emergency Department on the above date and was hospitalized for further evaluation of their emergent condition. - New patient This patient is new to me today: Yes Date on this admission: 03/18/19
[2019-03-18] MEDS ORDERED: MEROPENEM 1 GM VIAL (RESTRICTED TO ID) IVPB ONE ×2 (10:42→19:01)
[2019-03-18] MEDS ORDERED: DEXTROSE 5%-WATER 100 ML IVPB ONE ×2 (10:42→19:01)
--- NOTE | 2019-03-18 10:43 | PN ---
Progress Note (short form) - Note Progress Note: ID CONSULT DICTATED ACUTE NECROTIZING PANCREATITIS ?INFECTED NECROTIC PANCREAS FEVER/ LEUKOCYTOSIS LACTIC ACIDOSIS AWAIT C/S EMPIRIC MEROPENEM
[2019-03-18 10:46] LABS: ANISOCYTOSIS 0; MACROCYTOSIS 0; PLATELET ESTIMATE DECREASED
[2019-03-18] MEDS: MEROPENEM 1 GM in DEXTROSE 5%-WATER 100 ML IVPB SCH ×2 (10:54→19:05)
--- NOTE | 2019-03-18 11:20 | CONS ---
DATE OF CONSULTATION: DATE OF DICTATION: 03/18/2019 HISTORY OF PRESENT ILLNESS: The patient is a 34-year-old male with a history of alcohol abuse evaluated for possible infected necrotizing pancreatitis. He was admitted to the hospital on March 17, 2019, with severe abdominal pain for 1 day prior to admission. He was evaluated in the emergency room where a CAT scan showed diffuse pancreatic parenchymal swelling consistent with acute pancreatitis. There was diminished contrast enhancement which may have been on the basis of pancreatic necrosis. There is peripancreatic edema and fluid accumulation. He was noted to have a markedly elevated white blood cell count , fever and lactic acidosis. At the present time he is awake and alert. He has no complaints of pain. PAST MEDICAL HISTORY: As above. ALLERGIES: No known allergies. LABORATORY DATA: White count on admission 18.4, hematocrit 44.4, platelets 148. BUN 14, creatinine 0.9. Urinalysis: White cell 1. Total bilirubin 0.7, alkaline phosphatase 36, AST 65. Lactic acid 2.4. Lipase 10,515. Cultures pending. PHYSICAL EXAMINATION: General: He is awake and alert, supine in bed. Vital Signs: Temperature 100.2, blood pressure 158/98, pulse 103, regular, respirations 18 per minute. HEENT: Sclerae are anicteric. Cardiac: Heart sounds S1, S2. Lungs: Clear. Abdomen: Soft. There is mild epigastric tenderness to palpation. No mass, rebound or rigidity. Extremities: Negative for edema. IMPRESSION: 1. Acute necrotizing pancreatitis. 2. Possible infected necrotic pancreas. 3. Fever, leukocytosis. 4. Lactic acidosis. RECOMMENDATIONS: Await cultures. Surgical evaluation. Empiric antibiotic coverage for possible infected necrosing pancreatitis with meropenem 1 g IV piggyback every 8 hours. Thank you for the kind referral. MELVIN VICENTE M.D. [id number]
--- NOTE | 2019-03-18 11:53 | PN ---
Physical Exam: SUBJECTIVE: Patient seen and examined. Pt. endorses hiccups and epgastric abdominal pain made worse with deep inspiration. Pt. states he takes Tums almost everyday. Pt. denies nausea, vomiting. Pt. states that he has not had a BM since Saturday. Pt. states that he drinks about 4 drinks a day and that his last drink was on Saturday. In afternoon, Pt. transferred to ICU-Telemetry for elevated BP and monitoring. OBJECTIVE: Vital Signs Period Temp Pulse Resp BP Sys/Poe Pulse Ox Last 24 Hr 97.8 F-100.2 F 103-135 16-20 130-175/93-118 96-100 GENERAL: The patient is awake, alert, and fully oriented, in mild distress. HEAD: Normal with no signs of trauma. EYES: Extraocular movements intact, sclera anicteric, conjunctiva clear. ENT: Ears normal, nares patent, oropharynx clear without exudates, moist mucous membranes. NECK: Trachea midline, full range of motion, supple. LUNGS: Decreased breath sounds (poor effort 2/2 pain), no wheezes, no crackles, no accessory muscle use. HEART: Regular rate and rhythm, S1, S2 without murmur ABDOMEN: Soft, RUQ, LUQ and epigastric tenderness, dull to percussion, mildly distended, sluggish bowel sounds, hepatomegaly? EXTREMITIES: 2+ radial pulses, warm, well-perfused, no edema. NEUROLOGICAL: Normal speech, gait not observed. PSYCH: Normal mood, normal affect. SKIN: Warm, dry, normal turgor, no rashes or lesions noted Laboratory Results - last 24 hr 03/17/19 03/17/19 03/17/19 15:45 16:12 16:12 WBC 18.4 H RBC 5.30 Hgb 16.5 Hct 49.6 H MCV 93.5 MCH 31.1 MCHC 33.3 RDW 13.9 Plt Count 205 MPV 7.9 Absolute Neuts (auto) 16.0 H Neutrophils % 87.3 H Neutrophils % (Manual) Band Neutrophils % Lymphocytes % 4.3 L Lymphocytes % (Manual) Monocytes % 8.3 Monocytes % (Manual) Eosinophils % 0.0 Eosinophils % (Manual) Basophils % 0.1 Basophils % (Manual) Myelocytes % (Man) Promyelocytes % (Man) Blast Cells % (Manual) Nucleated RBC % 0 Metamyelocytes Hypochromia Platelet Estimate Polychromasia Poikilocytosis Anisocytosis Microcytosis Macrocytosis PT with INR 12.30 INR 1.04 PTT (Actin FS) VBG pH POC VBG pCO2 POC VBG pO2 VBG HCO3 VBG O2 Sat (Ousmane) VBG Base Excess Sodium 139 Potassium 4.1 Chloride 103 Carbon Dioxide 18 L Anion Gap 17 H BUN 18 Creatinine 1.0 Creat Clearance w eGFR 84.55 Random Glucose 133 H Lactic Acid Calcium 9.2 Phosphorus Magnesium Total Bilirubin 0.4 AST 35 ALT 74 H Alkaline Phosphatase 52 Total Protein 8.8 H Albumin 4.8 Triglycerides Lipase 00541 H Urine Color Urine Appearance Urine pH Ur Specific [place] Urine Protein Urine Glucose (UA) Urine Ketones Urine Blood Urine Nitrite Urine Bilirubin Urine Urobilinogen Ur Leukocyte Esterase Urine WBC (Auto) Urine RBC (Auto) Urine Casts (Auto) U Epithel Cells (Auto) Urine Bacteria (Auto) Blood Type Antibody Screen 03/18/19 03/18/19 03/18/19 03:50 03:50 03:50 WBC RBC Hgb Hct MCV MCH MCHC RDW Plt Count MPV Absolute Neuts (auto) Neutrophils % Neutrophils % (Manual) Band Neutrophils % Lymphocytes % Lymphocytes % (Manual) Monocytes % Monocytes % (Manual) Eosinophils % Eosinophils % (Manual) Basophils % Basophils % (Manual) Myelocytes % (Man) Promyelocytes % (Man) Blast Cells % (Manual) Nucleated RBC % Metamyelocytes Hypochromia Platelet Estimate Polychromasia Poikilocytosis Anisocytosis Microcytosis Macrocytosis PT with INR INR PTT (Actin FS) VBG pH POC VBG pCO2 POC VBG pO2 VBG HCO3 VBG O2 Sat (Ousmane) VBG Base Excess Sodium Potassium Chloride Carbon Dioxide Anion Gap BUN Creatinine Creat Clearance w eGFR Random Glucose Lactic Acid 3.6 H* Calcium Phosphorus Magnesium Total Bilirubin AST ALT Alkaline Phosphatase Total Protein Albumin Triglycerides 95 Lipase Urine Color Urine Appearance Urine pH Ur Specific [place] Urine Protein Urine Glucose (UA) Urine Ketones Urine Blood Urine Nitrite Urine Bilirubin Urine Urobilinogen Ur Leukocyte Esterase Urine WBC (Auto) Urine RBC (Auto) Urine Casts (Auto) U Epithel Cells (Auto) Urine Bacteria (Auto) Blood Type B POSITIVE Antibody Screen Negative 03/18/19 03/18/19 03/18/19 03:50 03:50 05:00 WBC RBC Hgb Hct MCV MCH MCHC RDW Plt Count MPV Absolute Neuts (auto) Neutrophils % Neutrophils % (Manual) Band Neutrophils % Lymphocytes % Lymphocytes % (Manual) Monocytes % Monocytes % (Manual) Eosinophils % Eosinophils % (Manual) Basophils % Basophils % (Manual) Myelocytes % (Man) Promyelocytes % (Man) Blast Cells % (Manual) Nucleated RBC % Metamyelocytes Hypochromia Platelet Estimate Polychromasia Poikilocytosis Anisocytosis Microcytosis Macrocytosis PT with INR INR PTT (Actin FS) 25.2 VBG pH 7.42 H POC VBG pCO2 33.7 L POC VBG pO2 78.4 H VBG HCO3 21.4 L VBG O2 Sat (Ousmane) 96 H VBG Base Excess -1.7 Sodium Potassium Chloride Carbon Dioxide Anion Gap BUN Creatinine Creat Clearance w eGFR Random Glucose Lactic Acid Calcium Phosphorus Magnesium Total Bilirubin AST ALT Alkaline Phosphatase Total Protein Albumin Triglycerides Lipase Urine Color Yellow Urine Appearance Clear Urine pH 5.5 Ur Specific [place] 1.064 H Urine Protein 2+ H Urine Glucose (UA) Negative Urine Ketones Negative Urine Blood 3+ H Urine Nitrite Negative Urine Bilirubin Negative Urine Urobilinogen 0.2 Ur Leukocyte Esterase Negative Urine WBC (Auto) 1 Urine RBC (Auto) 2 Urine Casts (Auto) 20 U Epithel Cells (Auto) 2.8 Urine Bacteria (Auto) 0 Blood Type Antibody Screen 03/18/19 03/18/19 03/18/19 07:08 07:08 09:25 WBC 11.9 H RBC 4.75 Hgb 15.1 Hct 44.4 MCV 93.5 MCH 31.8 MCHC 34.1 RDW 13.8 Plt Count 148 D MPV 8.0 Absolute Neuts (auto) 10.0 H Neutrophils % 83.7 H Neutrophils % (Manual) 71.0 Band Neutrophils % 11.2 Lymphocytes % 5.4 L D Lymphocytes % (Manual) 1.9 L Monocytes % 10.7 H Monocytes % (Manual) 9 Eosinophils % 0.0 Eosinophils % (Manual) 0.0 Basophils % 0.2 Basophils % (Manual) 0.0 Myelocytes % (Man) 1 Promyelocytes % (Man) 0 Blast Cells % (Manual) 0 Nucleated RBC % 0 Metamyelocytes 1 Hypochromia 0 Platelet Estimate Decreased Polychromasia 0 Poikilocytosis 0 Anisocytosis 0 Microcytosis 0 Macrocytosis 0 PT with INR INR PTT (Actin FS) VBG pH POC VBG pCO2 POC VBG pO2 VBG HCO3 VBG O2 Sat (Ousmane) VBG Base Excess Sodium Potassium Chloride Carbon Dioxide Anion Gap BUN Creatinine Creat Clearance w eGFR Random Glucose Lactic Acid 3.4 H* Calcium Phosphorus Magnesium Total Bilirubin AST ALT Alkaline Phosphatase Total Protein Albumin Triglycerides Lipase Urine Color Urine Appearance Urine pH Ur Specific [place] Urine Protein Urine Glucose (UA) Urine Ketones Urine Blood Urine Nitrite Urine Bilirubin Urine Urobilinogen Ur Leukocyte Esterase Urine WBC (Auto) Urine RBC (Auto) Urine Casts (Auto) U Epithel Cells (Auto) Urine Bacteria (Auto) Blood Type B POSITIVE Antibody Screen 03/18/19 09:25 WBC RBC Hgb Hct MCV MCH MCHC RDW Plt Count MPV Absolute Neuts (auto) Neutrophils % Neutrophils % (Manual) Band Neutrophils % Lymphocytes % Lymphocytes % (Manual) Monocytes % Monocytes % (Manual) Eosinophils % Eosinophils % (Manual) Basophils % Basophils % (Manual) Myelocytes % (Man) Promyelocytes % (Man) Blast Cells % (Manual) Nucleated RBC % Metamyelocytes Hypochromia Platelet Estimate Polychromasia Poikilocytosis Anisocytosis Microcytosis Macrocytosis PT with INR INR PTT (Actin FS) VBG pH POC VBG pCO2 POC VBG pO2 VBG HCO3 VBG O2 Sat (Ousmane) VBG Base Excess Sodium 139 Potassium 4.5 Chloride 103 Carbon Dioxide 30 Anion Gap 6 L BUN 14 Creatinine 0.9 Creat Clearance w eGFR 95.48 Random Glucose 122 H Lactic Acid Calcium 7.2 L Phosphorus 1.5 L Magnesium 1.5 L Total Bilirubin 0.7 AST 65 H ALT 41 Alkaline Phosphatase 36 L Total Protein 6.2 L Albumin 3.3 L Triglycerides 101 Lipase Urine Color Urine Appearance Urine pH Ur Specific [place] Urine Protein Urine Glucose (UA) Urine Ketones Urine Blood Urine Nitrite Urine Bilirubin Urine Urobilinogen Ur Leukocyte Esterase Urine WBC (Auto) Urine RBC (Auto) Urine Casts (Auto) U Epithel Cells (Auto) Urine Bacteria (Auto) Blood Type Antibody Screen Active Medications Home Medications Medication Instructions Recorded NK [No Known Home Medication] 12/31/16 Current Medications Amlodipine Besylate (Norvasc -) 5 mg PO DAILY [facility] Folic Acid (Folic Acid Injection -) 1 mg SQ DAILY [facility] Last Admin: 03/18/19 13:47 Dose: Not Given Hydromorphone HCl (Dilaudid Vial -) 1 mg IVPB Q4H PRN PRN Reason: PAIN LEVEL 7 - 10 Last Admin: 03/18/19 12:05 Dose: 1 mg Lactated Ringer's (Lactated Ringers Solution) 1,000 mls @ 250 mls/hr IV ASDIR [facility] Last Admin: 03/18/19 10:49 Dose: 250 mls/hr Meropenem 1 gm/ Dextrose 100 mls @ 200 mls/hr IVPB Q8H-IV [facility] Last Admin: 03/18/19 10:54 Dose: 200 mls/hr Potassium Phosphate 30 mm/ (Dextrose) 510 mls @ 63.75 mls/hr IVPB ONCE ONE Stop: 03/18/19 22:44 Lorazepam (Ativan -) 0.5 mg PO 0500,1100,1700,2300 [facility] Stop: 03/21/19 17:01 Lorazepam (Ativan -) 0.5 mg PO Q4H PRN PRN Reason: Symptoms of Withdrawal Stop: 03/21/19 17:00 Lorazepam (Ativan -) 1 mg PO 0500,1100,1700,2300 [facility] Stop: 03/20/19 11:01 Lorazepam (Ativan -) 1 mg PO Q4H PRN PRN Reason: Symptoms of Withdrawal Stop: 03/20/19 17:00 Lorazepam (Ativan -) 2 mg PO 0500,1100,1700,2300 [facility] Stop: 03/19/19 11:01 Pantoprazole Sodium (Protonix Iv) 40 mg IVPUSH BID [facility] Thiamine HCl (Vitamin B1 Injection -) 200 mg IVPB DAILY [facility] Last Admin: 03/18/19 13:33 Dose: 200 mg ASSESSMENT/PLAN: 34 y.o. M w/ hx. of alcohol dependence and GERD presents with 1 day of severe abdominal pain. #Sepsis 2/2 acute pancreatitis w/ possible necrosis (low suspicion) LA trending down, f/u rpt. 2.9--> Trig wnl c/w meropenem 1g IVPB q8h f/u ucx, blood cx pain control w/dilaudid PRN NPO vigorous IVF ID consult: Dr. Hightower- c/w Merrem sx consult: Dr. Roe. will keep NPO, T+S, coags in case of intervention #alcohol abuse mild to moderate withdrawal CIWA: 4; c/w monitoring c/w IV thiamine, folate to keep NPO c/w ativan protocol c/w tele monitoring #GERD c/w protonix IV 40mg BID #HTN- uncontrolled likely 2/2 pain, however states that his BP is always high whenever he goes to his PCP start Norvasc 5mg PO if BP uncontrolled can give PRN Labetalol #F/E/N IV LR 250 cc/hr continue to follow lytes, repleted Mag an Phos NPO, except for meds #PPX SCDs in case of intervention #Dispo Tele Visit type - Emergency Visit Emergency Visit: Yes ED Registration Date: 03/17/19 Care time: The patient presented to the Emergency Department on the above date and was hospitalized for further evaluation of their emergent condition. - New Patient This patient is new to me today: Yes Date on this admission: 03/18/19 - Critical Care Critical Care patient: No - Discharge Referral Referred to [facility] No
--- NOTE | 2019-03-18 14:28 | CONSULT ---
Consultation: REQUESTING PROVIDER: Dr Nunn Yousef CONSULT REQUEST: We have been asked to medically evaluate this patient for ( Acute narcotizing pancreatitis /Alcoholic ). HISTORY OF PRESENT ILLNESS: 34 y/o M with hx GERD, alcohol dependence, who presents to the ED c/o 1 day hx of severe abdominal pain. As per pt, it began this yesterday AM in his RUQ and RLQ. Was a sharp pain that was constant, but was unlike any other pain he has ever had before. Denies radiation. During this time, he does not endorse nausea , vomiting, or diarrhea. States that he occasionally takes an acid suppressant for his GERD, but otherwise does not take other medications. Has never had an ERCP, EGD, colonoscopy. Denies recent illnesses. Last drink was on Saturday, states that he was "drinking all day long." Otherwise, endorses at least two glasses of wine per day, however does believe that he is alcohol dependent. Denies STROUD, fever, chills, SOB, chest pain or pressure, or changes in urinary or bowel function. While in the ED, he was febrile to 100.2F with elevated BP ~170/110. Lipase found to be 10,515, and CTAP showed acute pancreatitis, with diminished contrast enhancement which may be on the basis of necrosis vs. prominent focal edema. Also w/ several small calcifications. Small amt of fluid in the paracolic spaces b/l and perihepatic and perisplenic free fluid visualized. Trace L pleural effusion seen. ER course was notable for: REVIEW OF SYSTEMS: CONSTITUTIONAL: Absent: fever, chills, diaphoresis, generalized weakness, malaise, loss of appetite, weight change HEENT: Absent: rhinorrhea, nasal congestion, throat pain, throat swelling, difficulty swallowing, mouth swelling, ear pain, eye pain, visual changes CARDIOVASCULAR: Absent: chest pain, syncope, palpitations, irregular heart rate, lightheadedness , peripheral edema RESPIRATORY: Absent: cough, shortness of breath, dyspnea with exertion, orthopnea, wheezing, stridor, hemoptysis GASTROINTESTINAL: Absent: abdominal pain, abdominal distension, nausea, vomiting, diarrhea, constipation, melena, hematochezia GENITOURINARY: Absent: dysuria, frequency, urgency, hesitancy, hematuria, flank pain, genital pain MUSCULOSKELETAL: Absent: myalgia, arthralgia, joint swelling, back pain, neck pain SKIN: Absent: rash, itching, pallor HEMATOLOGIC/IMMUNOLOGIC: Absent: easy bleeding, easy bruising, lymphadenopathy, frequent infections ENDOCRINE: Absent: unexplained weight gain, unexplained weight loss, heat intolerance, cold intolerance NEUROLOGIC: Absent: headache, focal weakness or paresthesias, dizziness, unsteady gait, seizure, mental status changes, bladder or bowel incontinence PSYCHIATRIC: Absent: anxiety, depression, suicidal or homicidal ideation, hallucinations. PHYSICAL EXAMINATION Vital Signs - 24 hr 03/17/19 03/18/19 03/18/19 23:45 06:42 08:20 Temperature 100.2 F H 99.1 F Pulse Rate Pulse Rate [ 119 H 110 H 103 H Apical] Respiratory 20 16 Rate Blood Pressure Blood Pressure 175/118 H 169/101 H 158/98 [Left Arm] O2 Sat by Pulse 98 96 100 Oximetry (%) 03/18/19 03/18/19 10:30 13:48 Temperature 99.3 F Pulse Rate 122 H Pulse Rate [ Apical] Respiratory 20 Rate Blood Pressure 117/111 H 155/110 H Blood Pressure [Left Arm] O2 Sat by Pulse Oximetry (%) GENERAL: AAOx3 in mild distress HEAD: NC/AT EYES: EOMI, Conjunctiva clear, ENT: dry mucous membrane NECK: Supple, no JVD LUNGS: CTA B/L, no crackles no wheezing no accessory muscle use. HEART: RRR, , normal s1, s2, murmur no M/R/G ABDOMEN: Soft,epigastric and periumbilical tenderness , +BS 4 Q, no CVA Tenderness LOWER EXTREMITIES: no edema, +2DP pulse, NEUROLOGICAL: No focal deficit. Normal speech. gait not observed. PSYCHIATRIC: Cooperative. Good eye contact. Appropriate mood and affect. SKIN: Warm, dry, Laboratory Results - last 24 hr 03/17/19 03/17/19 03/17/19 15:45 16:12 16:12 WBC 18.4 H RBC 5.30 Hgb 16.5 Hct 49.6 H MCV 93.5 MCH 31.1 MCHC 33.3 RDW 13.9 Plt Count 205 MPV 7.9 Absolute Neuts (auto) 16.0 H Neutrophils % 87.3 H Neutrophils % (Manual) Band Neutrophils % Lymphocytes % 4.3 L Lymphocytes % (Manual) Monocytes % 8.3 Monocytes % (Manual) Eosinophils % 0.0 Eosinophils % (Manual) Basophils % 0.1 Basophils % (Manual) Myelocytes % (Man) Promyelocytes % (Man) Blast Cells % (Manual) Nucleated RBC % 0 Metamyelocytes Hypochromia Platelet Estimate Polychromasia Poikilocytosis Anisocytosis Microcytosis Macrocytosis PT with INR 12.30 INR 1.04 PTT (Actin FS) VBG pH POC VBG pCO2 POC VBG pO2 VBG HCO3 VBG O2 Sat (Ousmane) VBG Base Excess Sodium 139 Potassium 4.1 Chloride 103 Carbon Dioxide 18 L Anion Gap 17 H BUN 18 Creatinine 1.0 Creat Clearance w eGFR 84.55 Random Glucose 133 H Lactic Acid Calcium 9.2 Phosphorus Magnesium Total Bilirubin 0.4 AST 35 ALT 74 H Alkaline Phosphatase 52 Total Protein 8.8 H Albumin 4.8 Triglycerides Lipase 83080 H Urine Color Urine Appearance Urine pH Ur Specific [place] Urine Protein Urine Glucose (UA) Urine Ketones Urine Blood Urine Nitrite Urine Bilirubin Urine Urobilinogen Ur Leukocyte Esterase Urine WBC (Auto) Urine RBC (Auto) Urine Casts (Auto) U Epithel Cells (Auto) Urine Bacteria (Auto) Blood Type Antibody Screen 03/18/19 03/18/19 03/18/19 03:50 03:50 03:50 WBC RBC Hgb Hct MCV MCH MCHC RDW Plt Count MPV Absolute Neuts (auto) Neutrophils % Neutrophils % (Manual) Band Neutrophils % Lymphocytes % Lymphocytes % (Manual) Monocytes % Monocytes % (Manual) Eosinophils % Eosinophils % (Manual) Basophils % Basophils % (Manual) Myelocytes % (Man) Promyelocytes % (Man) Blast Cells % (Manual) Nucleated RBC % Metamyelocytes Hypochromia Platelet Estimate Polychromasia Poikilocytosis Anisocytosis Microcytosis Macrocytosis PT with INR INR PTT (Actin FS) VBG pH POC VBG pCO2 POC VBG pO2 VBG HCO3 VBG O2 Sat ([place]e) VBG Base Excess Sodium Potassium Chloride Carbon Dioxide Anion Gap BUN Creatinine Creat Clearance w eGFR Random Glucose Lactic Acid 3.6 H* Calcium Phosphorus Magnesium Total Bilirubin AST ALT Alkaline Phosphatase Total Protein Albumin Triglycerides 95 Lipase Urine Color Urine Appearance Urine pH Ur Specific [place] Urine Protein Urine Glucose (UA) Urine Ketones Urine Blood Urine Nitrite Urine Bilirubin Urine Urobilinogen Ur Leukocyte Esterase Urine WBC (Auto) Urine RBC (Auto) Urine Casts (Auto) U Epithel Cells (Auto) Urine Bacteria (Auto) Blood Type B POSITIVE Antibody Screen Negative 03/18/19 03/18/19 03/18/19 03:50 03:50 05:00 WBC RBC Hgb Hct MCV MCH MCHC RDW Plt Count MPV Absolute Neuts (auto) Neutrophils % Neutrophils % (Manual) Band Neutrophils % Lymphocytes % Lymphocytes % (Manual) Monocytes % Monocytes % (Manual) Eosinophils % Eosinophils % (Manual) Basophils % Basophils % (Manual) Myelocytes % (Man) Promyelocytes % (Man) Blast Cells % (Manual) Nucleated RBC % Metamyelocytes Hypochromia Platelet Estimate Polychromasia Poikilocytosis Anisocytosis Microcytosis Macrocytosis PT with INR INR PTT (Actin FS) 25.2 VBG pH 7.42 H POC VBG pCO2 33.7 L POC VBG pO2 78.4 H VBG HCO3 21.4 L VBG O2 Sat (Ousmane) 96 H VBG Base Excess -1.7 Sodium Potassium Chloride Carbon Dioxide Anion Gap BUN Creatinine Creat Clearance w eGFR Random Glucose Lactic Acid Calcium Phosphorus Magnesium Total Bilirubin AST ALT Alkaline Phosphatase Total Protein Albumin Triglycerides Lipase Urine Color Yellow Urine Appearance Clear Urine pH 5.5 Ur Specific [place] 1.064 H Urine Protein 2+ H Urine Glucose (UA) Negative Urine Ketones Negative Urine Blood 3+ H Urine Nitrite Negative Urine Bilirubin Negative Urine Urobilinogen 0.2 Ur Leukocyte Esterase Negative Urine WBC (Auto) 1 Urine RBC (Auto) 2 Urine Casts (Auto) 20 U Epithel Cells (Auto) 2.8 Urine Bacteria (Auto) 0 Blood Type Antibody Screen 03/18/19 03/18/19 03/18/19 07:08 07:08 09:25 WBC 11.9 H RBC 4.75 Hgb 15.1 Hct 44.4 MCV 93.5 MCH 31.8 MCHC 34.1 RDW 13.8 Plt Count 148 D MPV 8.0 Absolute Neuts (auto) 10.0 H Neutrophils % 83.7 H Neutrophils % (Manual) 71.0 Band Neutrophils % 11.2 Lymphocytes % 5.4 L D Lymphocytes % (Manual) 1.9 L Monocytes % 10.7 H Monocytes % (Manual) 9 Eosinophils % 0.0 Eosinophils % (Manual) 0.0 Basophils % 0.2 Basophils % (Manual) 0.0 Myelocytes % (Man) 1 Promyelocytes % (Man) 0 Blast Cells % (Manual) 0 Nucleated RBC % 0 Metamyelocytes 1 Hypochromia 0 Platelet Estimate Decreased Polychromasia 0 Poikilocytosis 0 Anisocytosis 0 Microcytosis 0 Macrocytosis 0 PT with INR INR PTT (Actin FS) VBG pH POC VBG pCO2 POC VBG pO2 VBG HCO3 VBG O2 Sat ([place]us[place]e) VBG Base Excess Sodium Potassium Chloride Carbon Dioxide Anion Gap BUN Creatinine Creat Clearance w eGFR Random Glucose Lactic Acid 3.4 H* Calcium Phosphorus Magnesium Total Bilirubin AST ALT Alkaline Phosphatase Total Protein Albumin Triglycerides Lipase Urine Color Urine Appearance Urine pH Ur Specific [place] Urine Protein Urine Glucose (UA) Urine Ketones Urine Blood Urine Nitrite Urine Bilirubin Urine Urobilinogen Ur Leukocyte Esterase Urine WBC (Auto) Urine RBC (Auto) Urine Casts (Auto) U Epithel Cells (Auto) Urine Bacteria (Auto) Blood Type B POSITIVE Antibody Screen 03/18/19 03/18/19 09:25 12:10 WBC RBC Hgb Hct MCV MCH MCHC RDW Plt Count MPV Absolute Neuts (auto) Neutrophils % Neutrophils % (Manual) Band Neutrophils % Lymphocytes % Lymphocytes % (Manual) Monocytes % Monocytes % (Manual) Eosinophils % Eosinophils % (Manual) Basophils % Basophils % (Manual) Myelocytes % (Man) Promyelocytes % (Man) Blast Cells % (Manual) Nucleated RBC % Metamyelocytes Hypochromia Platelet Estimate Polychromasia Poikilocytosis Anisocytosis Microcytosis Macrocytosis PT with INR INR PTT (Actin FS) VBG pH POC VBG pCO2 POC VBG pO2 VBG HCO3 VBG O2 Sat ([place]us[place]e) VBG Base Excess Sodium 139 Potassium 4.5 Chloride 103 Carbon Dioxide 30 Anion Gap 6 L BUN 14 Creatinine 0.9 Creat Clearance w eGFR 95.48 Random Glucose 122 H Lactic Acid 2.9 H* Calcium 7.2 L Phosphorus 1.5 L Magnesium 1.5 L Total Bilirubin 0.7 AST 65 H ALT 41 Alkaline Phosphatase 36 L Total Protein 6.2 L Albumin 3.3 L Triglycerides 101 Lipase Urine Color Urine Appearance Urine pH Ur Specific [place] Urine Protein Urine Glucose (UA) Urine Ketones Urine Blood Urine Nitrite Urine Bilirubin Urine Urobilinogen Ur Leukocyte Esterase Urine WBC (Auto) Urine RBC (Auto) Urine Casts (Auto) U Epithel Cells (Auto) Urine Bacteria (Auto) Blood Type Antibody Screen Active Medications Generic Name Dose Route Start Last Admin Trade Name Freq PRN Reason Stop Dose Admin Folic Acid 1 mg 03/18/19 10:00 03/18/19 13:47 Folic Acid Injection - SQ Not Given DAILY MARKY Hydromorphone HCl 1 mg 03/18/19 00:31 03/18/19 12:05 Dilaudid Vial - IVPB 1 mg Q4H PRN Administration PAIN LEVEL 7 - 10 Lactated Ringer's 1,000 mls @ 250 mls/hr 03/18/19 08:37 03/18/19 10:49 Lactated Ringers Solution IV 250 mls/hr ASDIR MARKY Administration Meropenem 1 gm/ Dextrose 100 mls @ 200 mls/hr 03/18/19 10:45 03/18/19 10:54 IVPB 200 mls/hr Q8H-IV MARKY Administration Potassium Phosphate 30 mm/ 510 mls @ 63.75 mls/hr 03/18/19 14:45 Dextrose IVPB 03/18/19 22:44 ONCE ONE Lorazepam 1 mg 03/18/19 00:28 Ativan Injection - IVPUSH Q6H PRN WITHDRAWAL(CONT SUBST) Magnesium Sulfate 2 gm 03/18/19 14:30 03/18/19 14:08 Magnesium Sulfate IVPB 03/18/19 14:31 2 gm ONCE ONE Administration Pantoprazole Sodium 40 mg 03/18/19 22:00 Protonix Iv IVPUSH BID MARKY Thiamine HCl 200 mg 03/18/19 10:00 03/18/19 13:33 Vitamin B1 Injection - IVPB 200 mg DAILY MARKY Administration CBC, BMP 03/18/19 09:25 03/18/19 09:25 ASSESSMENT/PLAN: 34 year old male with heavy alcohol abuse , last drink yesterday presented with sever abdominal pain , local non radiating associated with fever and plapitation , was found to have lactic acidosis and sepsis due to acute narcotizing pancreatitis # Sepsis likely to Acute Narcotizing pancreatitis secondary to alcohol abuse , US with no cholelithisis or choledocolithiasis , * sever abdominal pain , local non radiating * Heavy drinking of alcohol for the last 4 days * wbc 18.4 , HR 122. temp 100.2 * CT A/P shows Acute pancreatitis (edematous vs narcotizing ), with pancreatic calcification in the head and peripancreatic edema , left lower pleural effusion * TG 95 , AST 65, LAT 41 , ALP 36 , glucose 122 , lipase 10,500 * NPO * IV fluids RL @ 150 CC/hr * IV Pain meds Dilauded , continue * ABx per ID started on Meropenem 1 g Q 8hr (was given levoflxasin in ED ) * LA trending down * monitor lipase , BUN/cr, Hematocrit and worsening symptoms first 48 hours , * replenished electrolytes * alcohol cessation : counselled # Alcohol dependence/Withdrawal * last drink yesterday * Ativan protocol * FA, Thiamin * CIWA protocol # GERD * cont PPI IV # Elevated BP due to withdrawal vs essential HTN vs pain reason * monitor BP and start on meds if continue to be elevated * #rest per primary team Dispo: We will continue to follow the patient. Thank you for this consultative opportunity. Visit type - Emergency Visit Emergency Visit: Yes ED Registration Date: 03/17/19 Care time: The patient presented to the Emergency Department on the above date and was hospitalized for further evaluation of their emergent condition. - New Patient This patient is new to me today: Yes Date on this admission: 03/18/19 - Critical Care Critical Care patient: No
[2019-03-18] MEDS ORDERED: MAGNESIUM SULF 50% (8.12 MEQ/2 ML-1 GM VIAL) IVPB ONE ×2 (14:30→18:00)
--- NOTE | 2019-03-18 14:44 | CON.GI ---
Consult Consult Specialty:: GI Reason for Consultation:: Acute pancreatitis - History of Present Illness Chief Complaint: Abdominal pain History of Present Illness: Patient presented to ED with severe abdominal pain tto upper abodmen at first constant in quality and then somewhat crampy. Positional and without radiation (worse standing up). Unlike previous experiences. No associated nausea or vomiting, but does report fever, chills. Noted in ED to have substantially elevated lipase (>10,000). Reports heavy EtOH intake with up to 4 drinks a day, mostly wine. Concerning features on imaging include presence of probable necrosis to pancreas with decreased contrast uptake, pleural effusion, pancreatic head calcifications (suggesting previous episodes of acute pancreatitis on his way to chronic pancreatitis), peripancreatic/pararenal/paracolic fluid. - Alcohol/Substance Use Hx Alcohol Use: Yes - Smoking History Smoking history: Never smoked Have you smoked in the past 12 months: No Home Medications - Allergies Allergies/Adverse Reactions: Allergies Allergy/AdvReac Type Severity Reaction Status Date / Time No Known Drug Allergies Allergy Verified 03/17/19 16:46 MOST NUTS Allergy Uncoded 03/17/19 16:46 - Home Medications Home Medications: Ambulatory Orders NK [No Known Home Medication] 12/31/16 Physical Exam-GI Vital Signs: Vital Signs Temperature 99.3 F 03/18/19 10:30 Pulse Rate 122 H 03/18/19 10:30 Respiratory Rate 20 03/18/19 10:30 Blood Pressure 155/110 H 03/18/19 13:48 O2 Sat by Pulse Oximetry (%) 100 03/18/19 08:20 Labs: CBC, BMP 03/18/19 09:25 03/18/19 09:25 INR, PTT INR 1.04 (0.83-1.09) 03/17/19 16:12 Imaging - Results Cat Scan: Report Reviewed Problem List - Problems (1) Acute pancreatitis Code(s): K85.90 - ACUTE PANCREATITIS WITHOUT NECROSIS OR INFECTION, UNSP Qualifiers: Pancreatitis type: alcohol induced Acute pancreatitis complication: uninfected necrosis Qualified Code(s): K85.21 - Alcohol induced acute pancreatitis with uninfected necrosis Assessment/Plan Severe acute pancreatitis almost certainly secondary to EtOH with pancreatic necrosis suggested on CT and fever, though not necessarily infected pancreatic necrosis at this time. Continue with IV antibiotics, IVF support, keep NPO, pain relief as needed Would also guard against EtOH withdrawal. Patient counseled on importance of seeking treatment for alcoholism and importance of abstention given both acute pancreatitis and calcification on CT suggesting path to chronic pancreatitis. Patient stated to me that he understands and will pursue. Patient seen and examined with Dr. Carmona, medical specialist on GI service. His note also reflects our encounter.
[2019-03-18] MEDS ORDERED: POTASSIUM PHOSPHATE 30 MM in DEXTROSE 5%-WATER - 500 ML IVPB ONE (14:45)
[2019-03-18] MEDS ORDERED: LORazepam 1 MG TABLET PO PRN (15:16)
[2019-03-18] MEDS: amLODIPine BESYLATE 5 MG TABLET (FP) PO SCH (16:34)
[2019-03-18] MEDS: LORazepam 1 MG TABLET PO SCH ×2 (16:35→22:11)
--- NOTE | 2019-03-18 17:49 | PN ---
Teaching Attending Note Name of Resident: Olegario Coleman ATTENDING PHYSICIAN STATEMENT I saw and evaluated the patient. I reviewed the resident's note and discussed the case with the resident. I agree with the resident's findings and plan as documented. SUBJECTIVE: Ongoing abdominal discomfort. No nausea/vomiting/fever/chills. OBJECTIVE: Afebrile, Hemodynamically Stable. Last Vital Signs Temp Pulse Resp BP Pulse Ox 99.3 F 122 H 20 155/110 H 100 03/18/19 10:30 03/18/19 10:30 03/18/19 10:30 03/18/19 13:48 03/18/19 08:20 HEENT - Atraumatic, Normocephalic. Heart - S1, S2, RRR Lungs - clear to auscultation Abdomen - Epigastric and RUQ tenderness, Soft. Bowel Sounds normal. Extremities - no edema, no calf tenderness Laboratory Results - last 24 hr 03/18/19 03/18/19 03/18/19 03:50 03:50 03:50 WBC RBC Hgb Hct MCV MCH MCHC RDW Plt Count MPV Absolute Neuts (auto) Neutrophils % Neutrophils % (Manual) Band Neutrophils % Lymphocytes % Lymphocytes % (Manual) Monocytes % Monocytes % (Manual) Eosinophils % Eosinophils % (Manual) Basophils % Basophils % (Manual) Myelocytes % (Man) Promyelocytes % (Man) Blast Cells % (Manual) Nucleated RBC % Metamyelocytes Hypochromia Platelet Estimate Polychromasia Poikilocytosis Anisocytosis Microcytosis Macrocytosis PTT (Actin FS) VBG pH POC VBG pCO2 POC VBG pO2 VBG HCO3 VBG O2 Sat (Ousmane) VBG Base Excess Sodium Potassium Chloride Carbon Dioxide Anion Gap BUN Creatinine Creat Clearance w eGFR Random Glucose Lactic Acid 3.6 H* Calcium Phosphorus Magnesium Total Bilirubin AST ALT Alkaline Phosphatase Total Protein Albumin Triglycerides 95 Urine Color Urine Appearance Urine pH Ur Specific [place] Urine Protein Urine Glucose (UA) Urine Ketones Urine Blood Urine Nitrite Urine Bilirubin Urine Urobilinogen Ur Leukocyte Esterase Urine WBC (Auto) Urine RBC (Auto) Urine Casts (Auto) U Epithel Cells (Auto) Urine Bacteria (Auto) Blood Type B POSITIVE Antibody Screen Negative 03/18/19 03/18/19 03/18/19 03:50 03:50 05:00 WBC RBC Hgb Hct MCV MCH MCHC RDW Plt Count MPV Absolute Neuts (auto) Neutrophils % Neutrophils % (Manual) Band Neutrophils % Lymphocytes % Lymphocytes % (Manual) Monocytes % Monocytes % (Manual) Eosinophils % Eosinophils % (Manual) Basophils % Basophils % (Manual) Myelocytes % (Man) Promyelocytes % (Man) Blast Cells % (Manual) Nucleated RBC % Metamyelocytes Hypochromia Platelet Estimate Polychromasia Poikilocytosis Anisocytosis Microcytosis Macrocytosis PTT (Actin FS) 25.2 VBG pH 7.42 H POC VBG pCO2 33.7 L POC VBG pO2 78.4 H VBG HCO3 21.4 L VBG O2 Sat (Ousmane) 96 H VBG Base Excess -1.7 Sodium Potassium Chloride Carbon Dioxide Anion Gap BUN Creatinine Creat Clearance w eGFR Random Glucose Lactic Acid Calcium Phosphorus Magnesium Total Bilirubin AST ALT Alkaline Phosphatase Total Protein Albumin Triglycerides Urine Color Yellow Urine Appearance Clear Urine pH 5.5 Ur Specific [place] 1.064 H Urine Protein 2+ H Urine Glucose (UA) Negative Urine Ketones Negative Urine Blood 3+ H Urine Nitrite Negative Urine Bilirubin Negative Urine Urobilinogen 0.2 Ur Leukocyte Esterase Negative Urine WBC (Auto) 1 Urine RBC (Auto) 2 Urine Casts (Auto) 20 U Epithel Cells (Auto) 2.8 Urine Bacteria (Auto) 0 Blood Type Antibody Screen 03/18/19 03/18/19 03/18/19 07:08 07:08 09:25 WBC 11.9 H RBC 4.75 Hgb 15.1 Hct 44.4 MCV 93.5 MCH 31.8 MCHC 34.1 RDW 13.8 Plt Count 148 D MPV 8.0 Absolute Neuts (auto) 10.0 H Neutrophils % 83.7 H Neutrophils % (Manual) 71.0 Band Neutrophils % 11.2 Lymphocytes % 5.4 L D Lymphocytes % (Manual) 1.9 L Monocytes % 10.7 H Monocytes % (Manual) 9 Eosinophils % 0.0 Eosinophils % (Manual) 0.0 Basophils % 0.2 Basophils % (Manual) 0.0 Myelocytes % (Man) 1 Promyelocytes % (Man) 0 Blast Cells % (Manual) 0 Nucleated RBC % 0 Metamyelocytes 1 Hypochromia 0 Platelet Estimate Decreased Polychromasia 0 Poikilocytosis 0 Anisocytosis 0 Microcytosis 0 Macrocytosis 0 PTT (Actin FS) VBG pH POC VBG pCO2 POC VBG pO2 VBG HCO3 VBG O2 Sat (Ousmane) VBG Base Excess Sodium Potassium Chloride Carbon Dioxide Anion Gap BUN Creatinine Creat Clearance w eGFR Random Glucose Lactic Acid 3.4 H* Calcium Phosphorus Magnesium Total Bilirubin AST ALT Alkaline Phosphatase Total Protein Albumin Triglycerides Urine Color Urine Appearance Urine pH Ur Specific [place] Urine Protein Urine Glucose (UA) Urine Ketones Urine Blood Urine Nitrite Urine Bilirubin Urine Urobilinogen Ur Leukocyte Esterase Urine WBC (Auto) Urine RBC (Auto) Urine Casts (Auto) U Epithel Cells (Auto) Urine Bacteria (Auto) Blood Type B POSITIVE Antibody Screen 03/18/19 03/18/19 09:25 12:10 WBC RBC Hgb Hct MCV MCH MCHC RDW Plt Count MPV Absolute Neuts (auto) Neutrophils % Neutrophils % (Manual) Band Neutrophils % Lymphocytes % Lymphocytes % (Manual) Monocytes % Monocytes % (Manual) Eosinophils % Eosinophils % (Manual) Basophils % Basophils % (Manual) Myelocytes % (Man) Promyelocytes % (Man) Blast Cells % (Manual) Nucleated RBC % Metamyelocytes Hypochromia Platelet Estimate Polychromasia Poikilocytosis Anisocytosis Microcytosis Macrocytosis PTT (Actin FS) VBG pH POC VBG pCO2 POC VBG pO2 VBG HCO3 VBG O2 Sat (Ousmane) VBG Base Excess Sodium 139 Potassium 4.5 Chloride 103 Carbon Dioxide 30 Anion Gap 6 L BUN 14 Creatinine 0.9 Creat Clearance w eGFR 95.48 Random Glucose 122 H Lactic Acid 2.9 H* Calcium 7.2 L Phosphorus 1.5 L Magnesium 1.5 L Total Bilirubin 0.7 AST 65 H ALT 41 Alkaline Phosphatase 36 L Total Protein 6.2 L Albumin 3.3 L Triglycerides 101 Urine Color Urine Appearance Urine pH Ur Specific [place] Urine Protein Urine Glucose (UA) Urine Ketones Urine Blood Urine Nitrite Urine Bilirubin Urine Urobilinogen Ur Leukocyte Esterase Urine WBC (Auto) Urine RBC (Auto) Urine Casts (Auto) U Epithel Cells (Auto) Urine Bacteria (Auto) Blood Type Antibody Screen Current Medications Generic Name Dose Route Start Last Admin Trade Name Freq PRN Reason Stop Dose Admin Amlodipine Besylate 5 mg 03/18/19 16:00 03/18/19 16:34 Norvasc - PO 5 mg DAILY MARKY Administration Folic Acid 1 mg 03/18/19 10:00 03/18/19 13:47 Folic Acid Injection - SQ Not Given DAILY MARKY Hydromorphone HCl 1 mg 03/18/19 00:31 03/18/19 12:05 Dilaudid Vial - IVPB 1 mg Q4H PRN Administration PAIN LEVEL 7 - 10 Lactated Ringer's 1,000 mls @ 250 mls/hr 03/18/19 08:37 03/18/19 10:49 Lactated Ringers Solution IV 250 mls/hr ASDIR MARKY Administration Meropenem 1 gm/ Dextrose 100 mls @ 200 mls/hr 03/18/19 10:45 03/18/19 10:54 IVPB 200 mls/hr Q8H-IV MARKY Administration Potassium Phosphate 30 mm/ 510 mls @ 63.75 mls/hr 03/18/19 14:45 Dextrose IVPB 03/18/19 22:44 ONCE ONE Lorazepam 0.5 mg 03/20/19 17:00 Ativan - PO 03/21/19 17:01 0500,1100,1700,2300 MARKY Lorazepam 0.5 mg 03/20/19 17:00 Ativan - PO 03/21/19 17:00 Q4H PRN Symptoms of Withdrawal Lorazepam 1 mg 03/19/19 17:00 Ativan - PO 03/20/19 11:01 0500,1100,1700,2300 MARKY Lorazepam 1 mg 03/18/19 15:16 Ativan - PO 03/20/19 17:00 Q4H PRN Symptoms of Withdrawal Lorazepam 2 mg 03/18/19 17:00 03/18/19 16:35 Ativan - PO 03/19/19 11:01 2 mg 0500,1100,1700,2300 MARKY Administration Pantoprazole Sodium 40 mg 03/18/19 22:00 Protonix Iv IVPUSH BID MARKY Thiamine HCl 200 mg 03/18/19 10:00 03/18/19 13:33 Vitamin B1 Injection - IVPB 200 mg DAILY MARKY Administration ASSESSMENT AND PLAN: 34 year old male with history of Alcohol Abuse, GERD, presents with 1 day history of severe abdominal pain, with nausea, no vomiting. In ED, he hjad a low grade temp up to 100.2 with tachycardia, hypertension, and leukocytosis. CT A/P - findings consistent with acute pancreatitis, with diminished contrast enhancement which may be on the basis of necrosis vs. prominent focal edema; several small calcifications suggestive of underlying chronic process. Small amt of fluid in the paracolic spaces b/l and perihepatic and perisplenic free fluid visualized. Trace L pleural effusion seen. US Abdo: no evidence of acute cholecystitis, CBD 0.4 cm, no biliary calculus seen. 1. Acute on Chronic Pancreatitis with possible Necrosis, with possible sepsis - secondary to Alcohol excess. Leukocytosis, tachycardia, lactic acid improving. NPO, aggressive IV hydration, Meropenem for possible necrosis GI and Surgery consulted - further management as per GI/Sx. Dilaudid prn for pain. 2. Acute Alcohol Withdrawal Ativan as per CIWA Thiamine IV 3. GERD - Continue PPI 4. HTN - will start Norvasc with Labetolol IV prn for uncontrolled episodes. DVT Px - Heparin SQ.
[2019-03-18] MEDS ORDERED: POTASSIUM PHOSPHATE 30 MM in DEXTROSE 5%-WATER - 250 ML IVPB ONE (17:54)
[2019-03-18] MEDS ORDERED: PANTOPRAZOLE SODIUM 40 MG VIAL IVPUSH SCH (22:00)
[2019-03-18] MEDS: HEPARIN NA (PORCINE) 5,000 UNITS/ML 1ML VIAL SQ SCH (22:10)
[2019-03-18] MEDS: LACTATED RINGERS SOLUTION 1,000 ML IV SCH (22:23)
[2019-03-19] MEDS ORDERED: MEROPENEM 1 GM VIAL (RESTRICTED TO ID) IVPB ONE ×3 (02:46→16:34)
[2019-03-19] MEDS ORDERED: DEXTROSE 5%-WATER 100 ML IVPB ONE ×3 (02:46→16:34)
[2019-03-19] MEDS: MEROPENEM 1 GM in DEXTROSE 5%-WATER 100 ML IVPB SCH ×3 (02:48→17:09)
[2019-03-19] MEDS: LORazepam 1 MG TABLET PO SCH ×4 (05:21→23:11)
[2019-03-19] MEDS: HEPARIN NA (PORCINE) 5,000 UNITS/ML 1ML VIAL SQ SCH ×3 (05:21→21:59)
[2019-03-19 06:26] LABS: BASO % 0.1 % (0-2.0); HEMATOCRIT 41.8 % (35.4-49); HEMOGLOBIN 14.6 GM/dL (11.7-16.9); LYMPH % 6.7 % (8-40); MCH 31.9 pg (25.7-33.7); MCHC 34.9 g/dl (32.0-35.9); MEAN CELL VOLUME 91.2 fl (80-96); MEAN PLT VOLUME 8.2 fl (7.5-11.1); MONO % 8.5 % (3.8-10.2); NEUT % 84.7 % (42.8-82.8); PLATELET COUNT 145 K/MM3 (134-434); RBC 4.59 M/mm3 (4.00-5.60); RDW 13.8 % (11.9-15.9)
[2019-03-19 07:04] LABS: ALBUMIN 2.7 g/dl (3.4-5.0); ALK PHOS 30 U/L (45-117); ANION GAP 6 MMOL/L (8-16); BILIRUBIN,TOTAL 0.8 mg/dL (0.2-1); BLOOD UREA NITROGEN 8 mg/dL (7-18); CHLORIDE 98 mmol/L (98-107); CO2 30 mmol/L (21-32); CREATININE 0.8 mg/dL (0.55-1.3); GLUCOSE,RANDOM 121 mg/dL (74-106); LDH 862 U/L (87-246); MAGNESIUM 1.8 mg/dL (1.8-2.4); PHOSPHOROUS 1.3 mg/dL (2.5-4.9); POTASSIUM 3.5 mmol/L (3.5-5.1); SGOT/AST 66 U/L (15-37); SGPT/ALT 28 U/L (13-61); SODIUM 135 mmol/L (136-145); TOT PROT 5.4 g/dl (6.4-8.2)
[2019-03-19 07:16] LABS: CALCIUM 5.9 mg/dL (8.5-10.1)
[2019-03-19] MEDS ORDERED: POTASSIUM PHOSPHATE 30 MM in SODIUM CHLORIDE 250 ML IVPB ONE ×2 (07:22→09:30)
[2019-03-19] MEDS ORDERED: CALCIUM GLUCONATE 10% - 1,000 MG/10 ML VIAL IVPB ONE (07:23)
[2019-03-19] MEDS ORDERED: THIAMINE HCL 200 MG/2 ML VIAL IVPB SCH (10:00)
[2019-03-19] MEDS ORDERED: FOLIC ACID 5 MG/1 ML SQ SCH (10:00)
[2019-03-19 10:22] VITALS: TEMP 100.4
--- NOTE | 2019-03-19 10:26 | PN ---
Physical Exam: SUBJECTIVE: Patient seen and examined. Pt. complaining of hiccups, lateralization of pain to the hypochondria. Pt. denies headache, changes in vision, numbness/tingling/ paresthesias on extremities, auditory or visual hallucinates, or chest pain. Pt. states his last BM was on Saturday and that he normally goes 2x/day. Pt. endorses inability to breathe deep 2/2 pain. OBJECTIVE: Vital Signs Period Temp Pulse Resp BP Sys/Poe Pulse Ox Last 24 Hr 99.3 F-101.3 F 122-145 20-29 117-155/80-111 GENERAL: The patient is awake, alert, and fully oriented, in mild distress. HEAD: Normal with no signs of trauma. EYES: sclera anicteric, conjunctiva clear. ENT: Ears normal, nares patent, oropharynx clear without exudates, moist mucous membranes. NECK: Trachea midline, full range of motion, supple. LUNGS: Decreased breath sounds (poor effort 2/2 pain), no wheezes, bibasilar crackles, no accessory muscle use. HEART: Regular rate and rhythm, S1, S2 without murmur ABDOMEN: Soft, RUQ, LUQ and epigastric tenderness, dull to percussion, mildly distended, sluggish bowel sounds, hepatomegaly? EXTREMITIES: 2+ radial pulses, warm, well-perfused, no edema. NEUROLOGICAL: Normal speech, gait not observed. PSYCH: Normal mood, normal affect. SKIN: Warm, dry, normal turgor, no rashes or lesions noted Laboratory Results - last 24 hr 03/18/19 03/18/19 03/18/19 07:08 09:25 12:10 WBC RBC Hgb Hct MCV MCH MCHC RDW Plt Count MPV Absolute Neuts (auto) Neutrophils % Neutrophils % (Manual) 71.0 Band Neutrophils % 11.2 Lymphocytes % Lymphocytes % (Manual) 1.9 L Monocytes % Monocytes % (Manual) 9 Eosinophils % Eosinophils % (Manual) 0.0 Basophils % Basophils % (Manual) 0.0 Myelocytes % (Man) 1 Promyelocytes % (Man) 0 Blast Cells % (Manual) 0 Nucleated RBC % 0 Metamyelocytes 1 Hypochromia 0 Platelet Estimate Decreased Polychromasia 0 Poikilocytosis 0 Anisocytosis 0 Microcytosis 0 Macrocytosis 0 Sodium Potassium Chloride Carbon Dioxide Anion Gap BUN Creatinine Creat Clearance w eGFR Random Glucose Lactic Acid 2.9 H* Calcium Phosphorus Magnesium Total Bilirubin AST ALT Alkaline Phosphatase LD Total Total Protein Albumin Blood Type B POSITIVE 03/18/19 03/19/19 03/19/19 16:25 05:30 05:30 WBC 14.0 H RBC 4.59 Hgb 14.6 Hct 41.8 MCV 91.2 MCH 31.9 MCHC 34.9 RDW 13.8 Plt Count 145 MPV 8.2 Absolute Neuts (auto) 11.8 H Neutrophils % 84.7 H Neutrophils % (Manual) Band Neutrophils % Lymphocytes % 6.7 L D Lymphocytes % (Manual) Monocytes % 8.5 Monocytes % (Manual) Eosinophils % 0.0 Eosinophils % (Manual) Basophils % 0.1 Basophils % (Manual) Myelocytes % (Man) Promyelocytes % (Man) Blast Cells % (Manual) Nucleated RBC % 0 Metamyelocytes Hypochromia Platelet Estimate Polychromasia Poikilocytosis Anisocytosis Microcytosis Macrocytosis Sodium 135 L Potassium 3.5 Chloride 98 Carbon Dioxide 30 Anion Gap 6 L BUN 8 Creatinine 0.8 Creat Clearance w eGFR 109.38 Random Glucose 121 H Lactic Acid 2.5 H* Calcium 5.9 L* Phosphorus 1.3 L Magnesium 1.8 Total Bilirubin 0.8 AST 66 H ALT 28 Alkaline Phosphatase 30 L LD Total 862 H Total Protein 5.4 L Albumin 2.7 L Blood Type 03/19/19 07:48 WBC RBC Hgb Hct MCV MCH MCHC RDW Plt Count MPV Absolute Neuts (auto) Neutrophils % Neutrophils % (Manual) Band Neutrophils % Lymphocytes % Lymphocytes % (Manual) Monocytes % Monocytes % (Manual) Eosinophils % Eosinophils % (Manual) Basophils % Basophils % (Manual) Myelocytes % (Man) Promyelocytes % (Man) Blast Cells % (Manual) Nucleated RBC % Metamyelocytes Hypochromia Platelet Estimate Polychromasia Poikilocytosis Anisocytosis Microcytosis Macrocytosis Sodium Potassium Chloride Carbon Dioxide Anion Gap BUN Creatinine Creat Clearance w eGFR Random Glucose Lactic Acid 1.6 Calcium Phosphorus Magnesium Total Bilirubin AST ALT Alkaline Phosphatase LD Total Total Protein Albumin Blood Type Active Medications Home Medications Medication Instructions Recorded NK [No Known Home Medication] 12/31/16 Current Medications Amlodipine Besylate (Norvasc -) 5 mg PO DAILY MARKY Last Admin: 03/18/19 16:34 Dose: 5 mg Folic Acid (Folic Acid Injection -) 1 mg SQ DAILY [facility] Heparin Sodium (Porcine) (Heparin -) 5,000 unit SQ TID [facility] Last Admin: 03/19/19 05:21 Dose: 5,000 unit Hydromorphone HCl (Dilaudid Vial -) 1 mg IVPB Q4H PRN PRN Reason: PAIN LEVEL 7 - 10 Last Admin: 03/18/19 22:54 Dose: 1 mg Lactated Ringer's (Lactated Ringers Solution) 1,000 mls @ 250 mls/hr IV ASDIR [facility] Last Admin: 03/18/19 22:23 Dose: 250 mls/hr Meropenem 1 gm/ Dextrose 100 mls @ 200 mls/hr IVPB Q8H-IV [facility] Last Admin: 03/19/19 02:48 Dose: 200 mls/hr Potassium Phosphate 30 mm/ (Sodium Chloride) 260 mls @ 43.333 mls/hr IVPB ONCE ONE Stop: 03/19/19 13:21 Lorazepam (Ativan -) 0.5 mg PO 0500,1100,1700,2300 [facility] Stop: 03/21/19 17:01 Lorazepam (Ativan -) 0.5 mg PO Q4H PRN PRN Reason: Symptoms of Withdrawal Stop: 03/21/19 17:00 Lorazepam (Ativan -) 1 mg PO 0500,1100,1700,2300 [facility] Stop: 03/20/19 11:01 Lorazepam (Ativan -) 1 mg PO Q4H PRN PRN Reason: Symptoms of Withdrawal Stop: 03/20/19 17:00 Lorazepam (Ativan -) 2 mg PO 0500,1100,1700,2300 [facility] Stop: 03/19/19 11:01 Last Admin: 03/19/19 05:21 Dose: 2 mg Pantoprazole Sodium (Protonix Iv) 40 mg IVPUSH BID [facility] Last Admin: 03/18/19 22:10 Dose: 40 mg Thiamine HCl (Vitamin B1 Injection -) 200 mg IVPB DAILY [facility] ASSESSMENT/PLAN: 34 y.o. M w/ hx. of alcohol dependence and GERD presents with 1 day of severe abdominal pain. #Sepsis 2/2 acute pancreatitis w/ possible necrosis LA trending down, f/u rpt. 2.9-->1.5 Trig wnl c/w meropenem 1g IVPB q8h f/u ucx, blood cx- Negative to date (24hours) Pt. spiked fever to 101.3 and 100.4 overnight and at 10AM respectively (03/19/19) Pain control w/dilaudid PRN NPO vigorous IVF ID consult: Dr. Hightower- c/w Merrem Surgery consult: Dr. Roe. will keep NPO, T+S, coags in case of intervention GI Consult: Dr. Maloney appreciated LDH: 823 Ransons score: 2 on admisison now 4--> 15% predicted mortality--> escalated to ICU Pt. has Sinus tachycardia not because of hypovolemia as Pt. has b/l Pleural effusions and bibasilar atelectasis on CXR this AM and LA of 1.6, may be because of pain and poor inspirations. Will continue to monitor, may need a dose of Lasix. #Alcohol abuse mild to moderate withdrawal CIWA: 4; c/w monitoring c/w IV thiamine, folate to keep NPO c/w ativan protocol c/w tele monitoring #GERD c/w protonix IV 40mg BID #HTN- uncontrolled likely 2/2 pain, however states that his BP is always high whenever he goes to his PCP start Norvasc 5mg PO if BP uncontrolled can give PRN Labetalol Pt. noted to be Sinus tachycardic to 130s #F/E/N IV LR 250 cc/hr continue to follow lytes, repleted Phos NPO, except for meds #PPX Hep SQ 5k #Dispo ICU will likely need transfer to [facility] for Hepatobiliary surgical eval. Visit type - Emergency Visit Emergency Visit: Yes ED Registration Date: 03/17/19 Care time: The patient presented to the Emergency Department on the above date and was hospitalized for further evaluation of their emergent condition. - New Patient This patient is new to me today: No - Critical Care Critical Care patient: No - Discharge Referral Referred to [facility] Med P.C.: No
--- NOTE | 2019-03-19 10:38 | PN ---
Progress Note (short form) - Note Progress Note: Pt seen and examined. Reports continued abdominal pain with examination. NPO. Voiding without issue. Denies cp/sob, n/v/d. Vital Signs Temp 100.4 F H 03/19/19 10:00 Pulse 142 H 03/19/19 10:00 Resp 26 H 03/19/19 10:00 BP 136/80 03/19/19 10:00 Pulse Ox 100 03/18/19 08:20 Intake & Output 03/18/19 03/18/19 03/19/19 11:59 23:59 11:59 Intake Total 0 2620 Balance 0 2620 Weight 180 lb Intake: IV 2520 Lactated Ringers Solution 2500 1,000 ml @ 250 mls/hr IV ASDIR MARKY Rx#: [id number] kvo 20 IVPB 100 Oral 0 Other: Voiding Method Toilet Toilet Toilet # Unmeasured Voids Void 2 Bowel Movement No No Height 5 ft 10 in Body Mass Index (BMI) 25.8 Weight Measurement Method Built in [facility] CBC, BMP 03/19/19 05:30 03/19/19 05:30 Gen: awake, alert, nad Resp: unlabored on RA Abdo: soft, + ttp in all quadrants, moreso in RUQ. Hypoactive bowel sounds, no rebound no guarding A/P: 34 y/o M with hx GERD, alcohol dependence, admitted 03/17 with severe abdominal pain, found to have acute pancreatitis w/ concern for necrosis. Febrile overnight (tmax 101.3), tachy, normotensive. WBC trending up, lfts stable, amylase/lipase not checked -Consider transfer to a tertiary care center -Amylase/lipase ordered for AM, recommend trending -NPO -IVF Resuscitation -Pain management -Tylenol for fever > 100.4F -Serial ABD exams -Cont Medical mangement at this time -General Surgery to cont following Above plan discussed with Dr. Roe and agrees
[2019-03-19] MEDS: PANTOPRAZOLE SODIUM 40 MG VIAL IVPUSH SCH (10:43)
[2019-03-19] MEDS: amLODIPine BESYLATE 5 MG TABLET (FP) PO SCH (10:51)
[2019-03-19] MEDS: HYDROmorphone HCl 2 MG/ML VIAL IVPB PRN ×2 (10:59→19:48)
--- NOTE | 2019-03-19 11:58 | CONSULT ---
Consult Consult Specialty:: ICU Referred by:: Jared Reason for Consultation:: ICU monitoring - History of Present Illness Chief Complaint: abdominal pain History of Present Illness: 34 yr old man with current alcohol use, hx of acid reflux symptoms presented to the ED with continuous worsening diffuse abdominal pain marked in the epigastrium associated with abdominal distention. The pain is worse with movement, radiates to across the abdominal. Has had similar abdominal distention and pain the past during times when he drank heavily but was able to "wait the pain out" and found it improved with OTC "stomach acid meds." denies previous hospitalizations or diagnosis of pancreatitis. pmhx; denies medical f/u Sochx: smokes marijuana, last use several months ago Surghx: denies fmhx: father with T2DM Meds: no prescribed medications, OTC "stomach acid medications" Pt has been monitored on telemetry for acute necrotizing pancreatitis with IVF and pain control and ETOH withdrawal with ativan as needed for withdrawal symptoms. He has been evaluated by GI and surgery. Denies chest pain, emesis, fever, hematochezia, diarrhea, shortness of breath, headache, DT's, jaundice. - Alcohol/Substance Use Hx Alcohol Use: Yes - Smoking History Smoking history: Never smoked Have you smoked in the past 12 months: No Home Medications - Allergies Allergies/Adverse Reactions: Allergies Allergy/AdvReac Type Severity Reaction Status Date / Time No Known Drug Allergies Allergy Verified 03/17/19 16:46 MOST NUTS Allergy Uncoded 03/17/19 16:46 - Home Medications Home Medications: Ambulatory Orders NK [No Known Home Medication] 12/31/16 Family Disease History - Family Disease History Family Disease History: Diabetes: Father Review of Systems - Review of Systems Constitutional: denies: Fever, Lethargy, Night Sweats Eyes: denies: Double Vision HENT: denies: Difficult Swallowing, Gingival Bleeding Neck: denies: Pain on Movement, Swollen Glands, Tenderness Cardiovascular: denies: Chest Pain, Palpitations, Shortness of Breath Respiratory: reports: Cough (nonproductive, intermittent started yesterday) Gastrointestinal: reports: Abdominal Pain, Constipation. denies: Vomiting, Vomiting Blood Physical Exam Vital Signs: Vital Signs Temperature 100.4 F H 03/19/19 10:00 Pulse Rate 142 H 03/19/19 10:00 Respiratory Rate 26 H 03/19/19 10:00 Blood Pressure 136/80 03/19/19 10:00 O2 Sat by Pulse Oximetry (%) 100 03/18/19 08:20 Labs: CBC, BMP 03/19/19 05:30 03/19/19 05:30 Assessment/Plan closely monitor for ARDS with clinical assessment and repeat cxry in the morning given increased risk with pancreatitis and large volume IVF. Surgical recommendation for tertiary care center. Pt stable for monitoring on Telemetry.
--- NOTE | 2019-03-19 12:05 | EKG ---
Test Reason : Blood Pressure : / mmHG Vent. Rate : 146 BPM Atrial Rate : 146 BPM P-R Int : 136 ms QRS Dur : 068 ms QT Int : 264 ms P-R-T Axes : 026 010 -13 degrees QTc Int : 411 ms SINUS TACHYCARDIA NONSPECIFIC T WAVE ABNORMALITY ABNORMAL ECG WHEN COMPARED WITH ECG OF 17-MAR-2019 13:31, NONSPECIFIC T WAVE ABNORMALITY NOW EVIDENT IN INFERIOR LEADS NONSPECIFIC T WAVE ABNORMALITY NOW EVIDENT IN LATERAL LEADS Confirmed by YASMIN HUITRON, TALON ([id number]) on 03/19/2019 12:05:10 PM Referred By: ANGELA ELIZABETH DR Confirmed By:TALON HOFFMAN MD
--- NOTE | 2019-03-19 12:13 | PN ---
Teaching Attending Note Name of Resident: Olegario Coleman ATTENDING PHYSICIAN STATEMENT I saw and evaluated the patient. I reviewed the resident's note and discussed the case with the resident. I agree with the resident's findings and plan as documented. SUBJECTIVE: Ongoing abdominal discomfort. No nausea/vomiting/fever/chills. OBJECTIVE: Afebrile, Hemodynamically Stable. Last Vital Signs Temp Pulse Resp BP Pulse Ox 100.4 F H 142 H 26 H 136/80 100 03/19/19 10:00 03/19/19 10:00 03/19/19 10:00 03/19/19 10:03/18/19 08:20 Heart - S1, S2, RRR Lungs - bilateral Lower Zone crackles Abdomen - Epigastric and RUQ tenderness, Soft. Bowel Sounds normal. Extremities - no edema, no calf tenderness Laboratory Results - last 24 hr 03/18/19 03/18/19 03/19/19 12:10 16:25 05:30 WBC RBC Hgb Hct MCV MCH MCHC RDW Plt Count MPV Absolute Neuts (auto) Neutrophils % Lymphocytes % Monocytes % Eosinophils % Basophils % Nucleated RBC % Sodium 135 L Potassium 3.5 Chloride 98 Carbon Dioxide 30 Anion Gap 6 L BUN 8 Creatinine 0.8 Creat Clearance w eGFR 109.38 Random Glucose 121 H Lactic Acid 2.9 H* 2.5 H* Calcium 5.9 L* Phosphorus 1.3 L Magnesium 1.8 Total Bilirubin 0.8 AST 66 H ALT 28 Alkaline Phosphatase 30 L LD Total 862 H Total Protein 5.4 L Albumin 2.7 L 03/19/19 03/19/19 05:30 07:48 WBC 14.0 H RBC 4.59 Hgb 14.6 Hct 41.8 MCV 91.2 MCH 31.9 MCHC 34.9 RDW 13.8 Plt Count 145 MPV 8.2 Absolute Neuts (auto) 11.8 H Neutrophils % 84.7 H Lymphocytes % 6.7 L D Monocytes % 8.5 Eosinophils % 0.0 Basophils % 0.1 Nucleated RBC % 0 Sodium Potassium Chloride Carbon Dioxide Anion Gap BUN Creatinine Creat Clearance w eGFR Random Glucose Lactic Acid 1.6 Calcium Phosphorus Magnesium Total Bilirubin AST ALT Alkaline Phosphatase LD Total Total Protein Albumin Current Medications Generic Name Dose Route Start Last Admin Trade Name Freq PRN Reason Stop Dose Admin Amlodipine Besylate 5 mg 03/18/19 16:00 03/19/19 10:51 Norvasc - PO 5 mg DAILY MARKY Administration Folic Acid 1 mg 03/19/19 10:00 Folic Acid Injection - SQ DAILY MARKY Heparin Sodium (Porcine) 5,000 unit 03/18/19 22:00 03/19/19 05:21 Heparin - SQ 5,000 unit TID MARKY Administration Hydromorphone HCl 1 mg 03/18/19 20:38 03/19/19 10:59 Dilaudid Vial - IVPB 1 mg Q4H PRN Administration PAIN LEVEL 7 - 10 Lactated Ringer's 1,000 mls @ 250 mls/hr 03/18/19 20:38 03/18/19 22:23 Lactated Ringers Solution IV 250 mls/hr ASDIR MARKY Administration Meropenem 1 gm/ Dextrose 100 mls @ 200 mls/hr 03/19/19 02:00 03/19/19 10:41 IVPB 200 mls/hr Q8H-IV MARKY Administration Potassium Phosphate 30 mm/ 260 mls @ 43.333 mls/hr 03/19/19 07:22 Sodium Chloride IVPB 03/19/19 13:21 ONCE ONE Lorazepam 0.5 mg 03/20/19 17:00 Ativan - PO 03/21/19 17:01 0500,1100,1700,2300 MARKY Lorazepam 0.5 mg 03/20/19 17:00 Ativan - PO 03/21/19 17:00 Q4H PRN Symptoms of Withdrawal Lorazepam 1 mg 03/19/19 17:00 Ativan - PO 03/20/19 11:01 0500,1100,1700,2300 MARKY Lorazepam 1 mg 03/18/19 15:16 Ativan - PO 03/20/19 17:00 Q4H PRN Symptoms of Withdrawal Pantoprazole Sodium 40 mg 03/18/19 22:00 03/19/19 10:43 Protonix Iv IVPUSH 40 mg BID MARKY Administration Thiamine HCl 200 mg 03/19/19 10:00 03/19/19 10:50 Vitamin B1 Injection - IVPB 200 mg DAILY MARKY Administration ASSESSMENT AND PLAN: 34 year old male with history of Alcohol Abuse, GERD, presents with 1 day history of severe abdominal pain, with nausea, no vomiting. In ED, he had a low grade temp up to 100.2 with tachycardia, hypertension, and leukocytosis. CT A/P - findings consistent with acute pancreatitis, with diminished contrast enhancement which may be on the basis of necrosis vs. prominent focal edema; several small calcifications suggestive of underlying chronic process. Small amt of fluid in the paracolic spaces b/l and perihepatic and perisplenic free fluid visualized. Trace L pleural effusion seen. US Abdo: no evidence of acute cholecystitis, CBD 0.4 cm, no biliary calculus seen. 1. Acute on Chronic Pancreatitis with possible Necrosis, and possible associated sepsis - Pancreatitis sec to Alcohol excess fever, tachycardia, leukocytosis persisting - worsening clinical status with tachypnea and HR up to 140s. NPO, continue aggressive IV hydration, monitor respiratory status due to fluid overload (bibasal crackles on auscultation and bilateral effusions on CXR) Meropenem for possible necrosis GI and Surgery consulted - continue Abx as per GI, Surgery recommends transfer due to possible necrosis and declining clinical status. Dilaudid prn for pain. Accepted for transfer to [facility]. 2. Acute Alcohol Withdrawal Ativan as per [facility] Thiamine IV 3. GERD - Continue PPI 4. HTN - started on Norvasc with Labetolol IV prn for uncontrolled episodes. 5. Hypophosphatemia - repleted. Medically stable for transfer to [facility] for higher level of care.
[2019-03-19] MEDS: LACTATED RINGERS SOLUTION 1,000 ML IV SCH ×3 (13:26→21:58)
--- NOTE | 2019-03-19 13:44 | PN ---
Teaching Attending Note Name of Resident: Cooper Ribeiro ATTENDING PHYSICIAN STATEMENT I saw and evaluated the patient. I reviewed the resident's note and discussed the case with the resident. I agree with the resident's findings and plan as documented. SUBJECTIVE: Patient seen and examined in the ICU. 34 M, chronic alcohol use/abuse and history of acid reflux symptoms. Admitted via the ER due to worsening of diffuse epigastric pain and abdominal distention. Denies previous hospitalizations or diagnosis of pancreatitis. Denies chest pain, emesis, fever, hematochezia, diarrhea, or shortness of breath. Workup during this hospitalization: suspected necrotizing pancreatitis. Seen by GI and Surgery: recommended transfer to tertiary care center. Intake & Output 03/16/19 03/17/19 03/18/19 03/19/19 23:59 23:59 23:59 23:59 Intake Total 0 2620 Balance 0 2620 Weight 180 lb 180 lb Last Vital Signs Temp Pulse Resp BP Pulse Ox 100.4 F H 142 H 26 H 136/80 100 03/19/19 10:00 03/19/19 10:00 03/19/19 10:00 03/19/19 10:00 03/18/19 08:20 Active Medications Amlodipine Besylate (Norvasc -) 5 mg PO DAILY [facility] Last Admin: 03/19/19 10:51 Dose: 5 mg Folic Acid (Folic Acid Injection -) 1 mg SQ DAILY [facility] Heparin Sodium (Porcine) (Heparin -) 5,000 unit SQ TID [facility] Last Admin: 03/19/19 05:21 Dose: 5,000 unit Hydromorphone HCl (Dilaudid Vial -) 1 mg IVPB Q4H PRN PRN Reason: PAIN LEVEL 7 - 10 Last Admin: 03/19/19 10:59 Dose: 1 mg Lactated Ringer's (Lactated Ringers Solution) 1,000 mls @ 250 mls/hr IV ASDIR [facility] Last Admin: 03/19/19 13:26 Dose: 250 mls/hr Meropenem 1 gm/ Dextrose 100 mls @ 200 mls/hr IVPB Q8H-IV MARKY Last Admin: 03/19/19 10:41 Dose: 200 mls/hr Lorazepam (Ativan -) 0.5 mg PO 0500,1100,1700,2300 [facility] Stop: 03/21/19 17:01 Lorazepam (Ativan -) 0.5 mg PO Q4H PRN PRN Reason: Symptoms of Withdrawal Stop: 03/21/19 17:00 Lorazepam (Ativan -) 1 mg PO 0500,1100,1700,2300 [facility] Stop: 03/20/19 11:01 Lorazepam (Ativan -) 1 mg PO Q4H PRN PRN Reason: Symptoms of Withdrawal Stop: 03/20/19 17:00 Pantoprazole Sodium (Protonix Iv) 40 mg IVPUSH BID [facility] Last Admin: 03/19/19 10:43 Dose: 40 mg Thiamine HCl (Vitamin B1 Injection -) 200 mg IVPB DAILY [facility] Last Admin: 03/19/19 10:50 Dose: 200 mg Constitutional: denies: Fever, Lethargy, Night Sweats Eyes: denies: Double Vision HENT: denies: Difficult Swallowing, Gingival Bleeding Neck: denies: Pain on Movement, Swollen Glands, Tenderness Cardiovascular: denies: Chest Pain, Palpitations, Shortness of Breath Respiratory: reports: Cough (nonproductive, intermittent started yesterday) Gastrointestinal: reports: Abdominal Pain, Constipation. denies: Vomiting, Vomiting Blood Physical Exam Vital Signs: GENERAL: awake, alert, and fully oriented, NAD HEAD: Normal with no signs of trauma. EYES: sclera anicteric, conjunctiva clear. ENT: Ears normal, nares patent, oropharynx clear without exudates, moist mucous membranes. NECK: Trachea midline, full range of motion, supple. LUNGS: Decreased breath sounds, no wheezes, bibasilar crackles, no accessory muscle use. HEART: Regular rate and rhythm, S1, S2 without murmur ABDOMEN: Soft, RUQ, LUQ and epigastric tenderness, dull to percussion, mildly distended, sluggish bowel sounds, hepatomegaly? EXTREMITIES: 2+ radial pulses, warm, well-perfused, no edema. NEUROLOGICAL: Non-focal SKIN: Warm, dry, normal turgor, no rashes or lesions noted Laboratory Results - last 24 hr 03/18/19 03/19/19 03/19/19 16:25 05:30 05:30 WBC 14.0 H RBC 4.59 Hgb 14.6 Hct 41.8 MCV 91.2 MCH 31.9 MCHC 34.9 RDW 13.8 Plt Count 145 MPV 8.2 Absolute Neuts (auto) 11.8 H Neutrophils % 84.7 H Lymphocytes % 6.7 L D Monocytes % 8.5 Eosinophils % 0.0 Basophils % 0.1 Nucleated RBC % 0 Sodium 135 L Potassium 3.5 Chloride 98 Carbon Dioxide 30 Anion Gap 6 L BUN 8 Creatinine 0.8 Creat Clearance w eGFR 109.38 Random Glucose 121 H Lactic Acid 2.5 H* Calcium 5.9 L* Phosphorus 1.3 L Magnesium 1.8 Total Bilirubin 0.8 AST 66 H ALT 28 Alkaline Phosphatase 30 L LD Total 862 H Total Protein 5.4 L Albumin 2.7 L 03/19/19 07:48 WBC RBC Hgb Hct MCV MCH MCHC RDW Plt Count MPV Absolute Neuts (auto) Neutrophils % Lymphocytes % Monocytes % Eosinophils % Basophils % Nucleated RBC % Sodium Potassium Chloride Carbon Dioxide Anion Gap BUN Creatinine Creat Clearance w eGFR Random Glucose Lactic Acid 1.6 Calcium Phosphorus Magnesium Total Bilirubin AST ALT Alkaline Phosphatase LD Total Total Protein Albumin Assessment/Plan Severe Acute Pancreatitis CT findings are suggestive of Necrosis ETOH Abuse No evidence of ARDS Patient will be transferred to [facility] for closer monitoring At this time he is hemodynamically stable and does not require transfer to an ICU bed Continue IVF with D5LR Strict I & O Noted empiric ABX O2 as needed Would follow closely for ARDS Please call for any acute change in condition Will follow while the patient is admitted Dr Hoskins
[2019-03-19] MEDS ORDERED: PT OWN MED DRAWER 7, Y5N ONE (17:11)
--- NOTE | 2019-03-19 17:11 | PN.GI ---
GI Progress Note Subjective: No acute events Patient states feeling better than yesterday subjectively Temp 101.3 2AM 800cc UO from 8AM - Objective Vital Signs: Vital Signs Temperature 100.4 F H 03/19/19 10:00 Pulse Rate 133 H 03/19/19 13:53 Respiratory Rate 26 H 03/19/19 13:53 Blood Pressure 130/90 03/19/19 13:53 O2 Sat by Pulse Oximetry (%) 100 03/18/19 08:20 Constitutional: Calm Cardiovascular: Yes: Tachycardia Respiratory: Yes: Diminished (at right base) Gastrointestinal Inspection: No: Scars ...Auscultate: Yes: Normoactive Bowel Sounds ...Palpate: Yes: Soft, Tenderness (TTP mid abdomen) ...Percussion: No: Tympanitic Edema: No (No LE edema) Neurological: Yes: Alert. No: Tremors Labs: CBC, BMP 03/19/19 05:30 03/19/19 05:30 INR, PTT INR 1.04 (0.83-1.09) 03/17/19 16:12 - ....Imaging Cat Scan: Report Reviewed, Image Reviewed Problem List - Problems (1) Acute pancreatitis Assessment/Plan: Concern for acute necrotizing pancreatitis. PAtient still with fevers, however early to call infected pancreatic necrosis. Likely from the pancreatitis itself Continuing supportive measures with aggressive IV hydration, NPO. Reeveluate fluid rate in AM Repletion of lytes per critical care/Primary team Pain control Strict I's and O'c Treatment of alcohol withdrawal. Suspect this is contributing to tachycardia as well Guarded condition at this time and patient aware that current clinical condition can be potentially life threatening. Advised complete alcohol cessation moving forward. Plan per primary team is to transfer to [facility] ([facility]) Code(s): K85.90 - ACUTE PANCREATITIS WITHOUT NECROSIS OR INFECTION, UNSP Qualifiers: Pancreatitis type: alcohol induced Acute pancreatitis complication: uninfected necrosis Qualified Code(s): K85.21 - Alcohol induced acute pancreatitis with uninfected necrosis
[2019-03-19 18:50] VITALS: PULSE 147
[2019-03-20] VITALS: BP 133/80
--- NOTE | 2019-03-20 06:11 | DS ---
Physical Exam: SUBJECTIVE: Patient seen and examined OBJECTIVE: Vital Signs Period Temp Pulse Resp BP Sys/Poe Pulse Ox Last 24 Hr 100.4 F 126-147 24-26 130-148/80-90 PHYSICAL EXAM GENERAL: The patient is awake, alert, and fully oriented, in no acute distress. HEAD: Normal with no signs of trauma. EYES: PERRL, extraocular movements intact, sclera anicteric, conjunctiva clear. ENT: Ears normal, nares patent, oropharynx clear without exudates, moist mucous membranes. NECK: Trachea midline, full range of motion, supple. LUNGS: Breath sounds equal, clear to auscultation bilaterally, no wheezes, no crackles, no accessory muscle use. HEART: Regular rate and rhythm, S1, S2 without murmur, rub or gallop. ABDOMEN: Soft, nontender, nondistended, normoactive bowel sounds, no guarding, no rebound, no hepatosplenomegaly, no masses. EXTREMITIES: 2+ pulses, warm, well-perfused, no edema. NEUROLOGICAL: Cranial nerves II through XII grossly intact. Normal speech, gait not observed. PSYCH: Normal mood, normal affect. SKIN: Warm, dry, normal turgor, no rashes or lesions noted. LABS Laboratory Results - last 24 hr 03/19/19 03/19/19 03/19/19 05:30 05:30 07:48 WBC 14.0 H RBC 4.59 Hgb 14.6 Hct 41.8 MCV 91.2 MCH 31.9 MCHC 34.9 RDW 13.8 Plt Count 145 MPV 8.2 Absolute Neuts (auto) 11.8 H Neutrophils % 84.7 H Lymphocytes % 6.7 L D Monocytes % 8.5 Eosinophils % 0.0 Basophils % 0.1 Nucleated RBC % 0 Sodium 135 L Potassium 3.5 Chloride 98 Carbon Dioxide 30 Anion Gap 6 L BUN 8 Creatinine 0.8 Creat Clearance w eGFR 109.38 Random Glucose 121 H Lactic Acid 1.6 Calcium 5.9 L* Phosphorus 1.3 L Magnesium 1.8 Total Bilirubin 0.8 AST 66 H ALT 28 Alkaline Phosphatase 30 L LD Total 862 H Total Protein 5.4 L Albumin 2.7 L HOSPITAL COURSE: Date of Admission:03/17/19 Date of Discharge: 03/20/19 Discharge Summary Reason For Visit: ABDOMINAL PAIN, ACUTE PANCREATITIS Current Active Problems Abdominal pain (Acute) Acute pancreatitis (Acute) Condition: Stable - Instructions Diet, Activity, Other Instructions: You came in for abdominal pain 2/2 to acute on chronic pancreatitis. We are transferring you to [facility] for higher level of care and evaluation by a hepatobiliary surgeon. You may have an infection in your pancreas. Please stop drinking. Please seek out assistance from a Detox Program Please follow up with your Primary care physician on discharge within 1 week. Disposition: TRANSFER ACUTE CARE/OTHER HOSP - Home Medications Comprehensive Discharge Medication List: Ambulatory Orders NK [No Known Home Medication] 12/31/16 - Discharge Referral Referred to [facility] Med P.C.: No
[2019-03-20] MEDS ORDERED: LORazepam 0.5 MG TABLET PO PRN (17:00)
[2019-03-20] MEDS ORDERED: LORazepam 0.5 MG TABLET PO SCH (17:00)
== END 2019-03-19 20:50 | disposition short-term general hospital (02) | DRG 282 ==
LOC: JER 13:24 → JERBED 23:23 → J6S 03-18 09:58 → J2W 03-18 18:33
PROVIDERS: ADMIT Internal Medicine
DX: K85.21 Alcohol induced acute pancreatitis with uninfected necrosis (principal); E87.2 Acidosis; E83.39 Other disorders of phosphorus metabolism; F10.230 Alcohol dependence with withdrawal, uncomplicated; K86.0 Alcohol-induced chronic pancreatitis; K21.9 Gastro-esophageal reflux disease without esophagitis; Z87.891 Personal history of nicotine dependence
CPT/HCPCS: 36415; 71045-TC-FY; 74177-TC; 76705-TC; 80053; 81003; 82803; 83605; 83615; 83690; 83735; 84100; 84478; 85025; 85610; 85730; 86850; 86900; 86901; 87040; 87086; 93005; 93010; 99284-25; J0131; J1644; J7030